=== PATIENT | male | born 1950 | race Caucasian/White ===

== ENCOUNTER 2017-04-20 11:54 | Emergency (ER) | payer BC ==
[2017-04-20] MEDS ORDERED: NS 0.9% 1000 ML* 1,000 ML IV ONE ×2 (12:14→15:26)
[2017-04-20 12:40] LABS: ABS Basophils 0 10^3/ul (0-0.2); ABS Eosinophils 0.1 10^3/ul (0-0.6); ABS Lymphocytes 1.4 10^3/ul (1.0-4.8); ABS Monocytes 0.5 10^3/ul (0-0.8); ABS Nucleated RBC 0 10^3/ul; Eosinophil % 1.8 % (0-6); Hematocrit 26 % (42-52); Hemoglobin 9.1 g/dl (14.0-18.0); Lymphocyte % 28.3 % (25-47); Mean Corpuscular HGB Conc 35 g/dl (31-36); Mean Corpuscular Hemoglobin 32 pg (27-31); Mean Corpuscular Volume 94 fL (80-94); Mean Platelet Volume 11 um3 (7.4-10.4); Nucleated Red Blood Cells % 0.1; Platelet Count 217 10^3/ul (150-450); Red Blood Count 2.81 10^6/ul (4.0-5.4); Red Cell Distribution Width 15 % (10.5-15); White Blood Count 5.1 10^3/ul (3.5-10.8)
[2017-04-20 13:00] LABS: EGFR Non-African American 80.5 (>60)
--- NOTE | 2017-04-20 13:01 | RAD ---
HISTORY: Weakness COMPARISONS: March 18, 2016 VIEWS: 4: Frontal dual-energy and lateral views of the chest. FINDINGS: CARDIOMEDIASTINAL SILHOUETTE: The cardiomediastinal silhouette is normal. NUVIA: The nuvia are normal. PLEURA: The costophrenic angles are sharp. No pleural abnormalities are noted. LUNG PARENCHYMA: There is hyper inflation. There has been interval resolution of the reticulonodular pattern of opacification of the lung bases bilaterally. ABDOMEN: The upper abdomen is clear. There is no subphrenic gas. BONES AND SOFT TISSUES: No bone or soft tissue abnormalities are noted. OTHER: None. IMPRESSION: HYPERINFLATION. THERE HAS BEEN IMPROVED AERATION OF THE LUNG BASES BILATERALLY.
[2017-04-20 15:22] LABS: Urine Appearance Clear; Urine Blood Negative (Negative); Urine Color Yellow; Urine Ketones Negative (Negative); Urine Protein Negative (Negative); Urine Specific Gravity 1.011 (1.010-1.030); Urine Urobilinogen Negative (Negative)
[2017-04-20 17:23] VITALS: BP 100/55
[2017-04-20] MEDS ORDERED: Oseltamivir SUSP 75 MG dose* 75 MG/12.5 ML ORAL.SYRIN PO SCH (21:00)
--- NOTE | 2017-04-21 21:18 | ED ---
Minh Cook Jennifer, scribed for Blas Hdez MD on 04/20/17 at 1218 . Complex/Multi-Sys Presentation - HPI Summary HPI Summary: The patient is a 66 year old male who presents with overall weakness that began three days ago. The patient describes that he had a loss of strength and congestion. He felt dizzy while standing, but he usually does not stand for long periods. The patient also complains of chills, loss of appetite, and decreased liquid intake. He experienced a complete loss of appetite about a year ago that has since resolved, but he lost a lot of his taste senses. The patient also recently began physical therapy. He was accompanied by his today. - History Of Current Complaint Chief Complaint: EDWeakness Time Seen by Provider: 04/20/17 12:02 Hx Obtained From: Patient Onset/Duration: Sudden Onset, Still Present Timing: Constant Severity Currently: Mild Severity Initially: Mild Associated Signs And Symptoms: Positive: Dizziness, Weakness - Allergies/Home Medications Allergies/Adverse Reactions: Allergies Allergy/AdvReac Type Severity Reaction Status Date / Time No Known Allergies Allergy Verified 03/24/16 12:28 Home Medications: Home Medications Alectinib 600 mg PO BID 04/20/17 [History Confirmed 04/20/17] Ibuprofen TAB* [Advil TAB*] 400 mg PO Q8H PRN 04/20/17 [History Confirmed ] PMH/Surg Hx/FS Hx/Imm Hx Endocrine/Hematology History: Denies: Hx Diabetes Cardiovascular History: Denies: Hx Hypertension Infectious Disease History: No Infectious Disease History: Denies: Hx Clostridium Difficile, Hx Hepatitis, Hx Human Immunodeficiency Virus (HIV), Hx of Known/Suspected MRSA, Hx Shingles, Hx Tuberculosis, Traveled Outside the [place] in Last 30 Days - Family History Known Family History: Negative: Hypertension, Diabetes - Social History Alcohol Use: Occasionally Substance Use Type: Reports: None Hx Tobacco Use: No Smoking Status (MU): Never Smoked Tobacco Review of Systems Positive: Chills, Other - Loss of strength, loss of appetite and fluid intake Positive: Other - congestion Neurological: Other - Dizziness while standing Positive: Weakness All Other Systems Reviewed And Are Negative: Yes Physical Exam - Summary Physical Exam Summary: Appearance: The patient is well-nourished in no acute distress and in no acute pain. Skin: The skin is warm and dry. His skin is pale and not tenting. HEENT: ~The head is normocephalic and atraumatic. The pupils are equal and reactive. The conjunctivae are pink in color. ~Nares are patent and without drainage. ~Mouth reveals dry mucous membranes and the throat is without erythema and exudate. ~The external ears are intact. The ear canals are patent and without drainage. The tympanic membranes are intact. Neck: the neck is supple with full range of motion and non-tender. There are no carotid bruits. ~There is no neck vein distension. Respiratory: Chest is non-tender. ~Lungs are clear to auscultation and breath sounds are symmetrical and equal. Cardiovascular: Heart is regular rate and rhythm. ~There is no murmur or rub auscultated. ~~There is no peripheral edema and pulses are symmetrical and equal. Abdomen: The abdomen is soft and non-tender. ~There are normal bowel sounds heard in all four quadrants and there is no organomegaly palpated. Musculoskeletal: There is no back tenderness noted. ~Extremities are non-tender with full range of motion. ~There is good capillary refill. ~There is no peripheral edema or calf tenderness elicited. Neurological: Patient is alert and oriented to person, place and time. ~The patient has symmetrical motor strength in all four extremities. ~Cranial nerves are grossly intact. Deep tendon reflexes are symmetrical and equal in all four extremities. Psychiatric: The patient has an appropriate affect and does not exhibit any anxiety or depression. Triage Information Reviewed: Yes Vital Signs On Initial Exam: Initial Vitals Temp Pulse Resp BP Pulse Ox 97.4 F 58 16 91/52 98 04/20/17 11:57 04/20/17 11:57 04/20/17 11:57 04/20/17 11:57 04/20/17 11:57 Vital Signs Reviewed: Yes Diagnostics - Vital Signs Vital Signs Temp Pulse Resp BP Pulse Ox 04/20/17 11:57 97.4 F 58 16 91/52 98 - Laboratory Lab Results: Lab Results 04/20/17 04/20/17 04/20/17 Range/Units 12:25 12:25 12:25 WBC 5.1 (3.5-10.8) 10^3/ul RBC 2.81 L (4.0-5.4) 10^6/ul Hgb 9.1 L (14.0-18.0) g/dl Hct 26 L (42-52) % MCV 94 (80-94) fL MCH 32 H (27-31) pg MCHC 35 (31-36) g/dl RDW 15 (10.5-15) % Plt Count 217 (150-450) 10^3/ul MPV 11 H (7.4-10.4) um3 Neut % (Auto) 59.2 (38-83) % Lymph % (Auto) 28.3 (25-47) % [place] % (Auto) 9.9 H (1-9) % Eos % (Auto) 1.8 (0-6) % Baso % (Auto) 0.8 (0-2) % Absolute Neuts (auto) 3.0 (1.5-7.7) 10^3/ul Absolute Lymphs (auto) 1.4 (1.0-4.8) 10^3/ul Absolute Monos (auto) 0.5 (0-0.8) 10^3/ul Absolute Eos (auto) 0.1 (0-0.6) 10^3/ul Absolute Basos (auto) 0 (0-0.2) 10^3/ul Absolute Nucleated RBC 0 10^3/ul Nucleated RBC % 0.1 Sodium 137 (133-145) mmol/L Potassium 3.9 (3.5-5.0) mmol/L Chloride 106 (101-111) mmol/L Carbon Dioxide 26 (22-32) mmol/L Anion Gap 5 (2-11) mmol/L BUN 20 (6-24) mg/dL Creatinine 0.94 (0.67-1.17) mg/dL Est GFR ( Amer) 103.6 (>60) Est GFR (Non-Af Amer) 80.5 (>60) BUN/Creatinine Ratio 21.3 H (8-20) Glucose 82 (70-100) mg/dL Lactic Acid 0.4 L (0.5-2.0) mmol/L Calcium 8.7 (8.6-10.3) mg/dL Magnesium 2.1 (1.9-2.7) mg/dL Total Bilirubin 0.50 (0.2-1.0) mg/dL AST 26 (13-39) U/L ALT 14 (7-52) U/L Alkaline Phosphatase 86 (34-104) U/L Troponin I 0.01 (<0.04) ng/mL C-Reactive Protein 15.84 H (< 5.00) mg/L Total Protein 6.2 L (6.4-8.9) g/dL Albumin 3.9 (3.2-5.2) g/dL Globulin 2.3 (2-4) g/dL Albumin/Globulin Ratio 1.7 (1-3) Urine Color Urine Appearance Urine pH (5-9) Ur Specific Erin (1.010-1.030) Urine Protein (Negative) Urine Ketones (Negative) Urine Blood (Negative) Urine Nitrate (Negative) Urine Bilirubin (Negative) Urine Urobilinogen (Negative) Ur Leukocyte Esterase (Negative) Urine Glucose (Negative) Influenza A (Rapid) (Negative) Influenza B (Rapid) (Negative) 04/20/17 04/20/17 Range/Units 12:41 15:15 WBC (3.5-10.8) 10^3/ul RBC (4.0-5.4) 10^6/ul Hgb (14.0-18.0) g/dl Hct (42-52) % MCV (80-94) fL MCH (27-31) pg MCHC (31-36) g/dl RDW (10.5-15) % Plt Count (150-450) 10^3/ul MPV (7.4-10.4) um3 Neut % (Auto) (38-83) % Lymph % (Auto) (25-47) % [place] % (Auto) (1-9) % Eos % (Auto) (0-6) % Baso % (Auto) (0-2) % Absolute Neuts (auto) (1.5-7.7) 10^3/ul Absolute Lymphs (auto) (1.0-4.8) 10^3/ul Absolute Monos (auto) (0-0.8) 10^3/ul Absolute Eos (auto) (0-0.6) 10^3/ul Absolute Basos (auto) (0-0.2) 10^3/ul Absolute Nucleated RBC 10^3/ul Nucleated RBC % Sodium (133-145) mmol/L Potassium (3.5-5.0) mmol/L Chloride (101-111) mmol/L Carbon Dioxide (22-32) mmol/L Anion Gap (2-11) mmol/L BUN (6-24) mg/dL Creatinine (0.67-1.17) mg/dL Est GFR ( Amer) (>60) Est GFR (Non-Af Amer) (>60) BUN/Creatinine Ratio (8-20) Glucose (70-100) mg/dL Lactic Acid (0.5-2.0) mmol/L Calcium (8.6-10.3) mg/dL Magnesium (1.9-2.7) mg/dL Total Bilirubin (0.2-1.0) mg/dL AST (13-39) U/L ALT (7-52) U/L Alkaline Phosphatase (34-104) U/L Troponin I (<0.04) ng/mL C-Reactive Protein (< 5.00) mg/L Total Protein (6.4-8.9) g/dL Albumin (3.2-5.2) g/dL Globulin (2-4) g/dL Albumin/Globulin Ratio (1-3) Urine Color Yellow Urine Appearance Clear Urine pH 5.0 (5-9) Ur Specific Erin 1.011 (1.010-1.030) Urine Protein Negative (Negative) Urine Ketones Negative (Negative) Urine Blood Negative (Negative) Urine Nitrate Negative (Negative) Urine Bilirubin Negative (Negative) Urine Urobilinogen Negative (Negative) Ur Leukocyte Esterase Negative (Negative) Urine Glucose Negative (Negative) Influenza A (Rapid) Positive H (Negative) Influenza B (Rapid) Negative (Negative) Result Diagrams: 04/20/17 12:25 04/20/17 12:25 Lab Statement: Any lab studies that have been ordered have been reviewed, and results considered in the medical decision making process. - Radiology CXR Xray Interpretation: Positive (See Comments) - HYPERINFLATION. THERE HAS BEEN IMPROVED AERATION OF THE LUNG BASES BILATERALLY. Dr. Hdez has reviewed this report. Radiology Interpretation Completed By: Radiologist - EKG 12:22 Cardiac Rate: Bradycardia EKG Rhythm: Sinus Bradycardia - 52 BPM EKG Interpretation: Nonspecific intraventricular conduction delay Complex Multi-Symp Course/Dx Course Of Treatment: Mr. Petersen presented with vague symptoms and was found to have influenza. He remained stable. - Diagnoses Provider Diagnoses: Influenza A Discharge - Discharge Plan Condition: Stable Disposition: HOME Prescriptions: Oseltamivir CAP* [Tamiflu CAP*] 75 mg PO BID #10 cap Patient Education Materials: Oseltamivir (By mouth), Influenza (DC) Referrals: Ranjan Umana MD [Primary Care Provider] - Roberto Navarro MD [Medical Doctor] - 1 Day Additional Instructions: Call Dr. Navarro tomorrow and let him know how you are feeling. Return to the emergency department for any new or worsening symptoms. The documentation as recorded by the Minh lugo Jennifer accurately reflects the service I personally performed and the decisions made by me, Blas Hdez MD.
== END 2017-04-20 16:45 | disposition home or self-care (01) ==
LOC: ED 11:54
DX: J09.X2 Influenza due to identified novel influenza A virus with other respiratory manifestations (principal); R42 Dizziness and giddiness; R53.1 Weakness; R09.81 Nasal congestion
CPT/HCPCS: 36415; 71046; 80053; 81003; 83605; 83735; 84484; 85025; 86140; 87502; 93005; 96360; 99284

== ENCOUNTER 2018-04-17 10:26 | Day surgery (SDC) | payer MEDICARE, BC ==
--- NOTE | 2018-04-14 07:22 | HP ---
CC: Dr. Ranjan Umana.* HISTORY AND PHYSICAL: DATE OF PLANNED ADMISSION AND SURGERY: 04/17/18 HISTORY OF PRESENT ILLNESS: Mr. Petersen is a 67-year-old white male with metastatic adenocarcinoma of the lung, and bladder lesion for transurethral resection. Mr. Petersen's history goes back to March 2016 when he was diagnosed with adenocarcinoma of the lung. At that time he was worked up and was noted to have metastatic disease to the brain, liver, pancreas, and bone. The patient was treated with total brain irradiation and then chemotherapy. He responded well and followup CT imaging showed significant reduction in the metastatic burden. He is followed at the [facility]. He has been maintained on Alecensa 150 mg daily. The patient had a follow up visit to the [facility] 2 months ago. There, he had a CT of the chest and abdomen, which showed normal multiple small pulmonary lesions, measuring about 3 to 4 mm, consistent with metastatic disease , sclerotic lesions in the thoracic spine and small volume mets into the liver. The kidneys looked normal without any masses or hydronephrosis. No CT of the pelvis was obtained. The patient was felt to be stable and no additional treatment was advised. Two weeks ago, he started having recurrent episodes of gross painless hematuria. No associated flank or abdominal pain and no voiding symptoms. He was referred to my office by Dr. Umana, his PCP for work-up of the hematuria . In my office, I performed a cystoscopy which showed a 1.5 to 2 cm elevated ulcerated lesion in the left lateral bladder wall. It had the gross appearance of a neoplastic lesion, probably metastatic rather than a primary bladder tumor. The rest of the bladder wall looked normal. No other lesions were seen. A full bladder ultrasound to check if the lesion is intramural in the bladder wall or extrinsic, invading into the bladder from the pelvis was done in the office. The lesion looked intramural, but the bladder could not be filled up adequately as the patient could not hold enough urine in his bladder. Repeat renal ultrasound in the office was normal showing no hydronephrosis or renal masses.. Because of the above finding, the patient is admitted for transurethral resection of the bladder lesion, both for diagnostic and therapeutic purposes. PAST MEDICAL HISTORY: As outlined above. The patient denies any cardiac disease. He has had difficulty ambulating since his brain irradiation and uses 2 walking sticks for his balance. He also has been anemic because of his condition. ALLERGIES: He denies any allergies to medications. SOCIAL HISTORY: He is a nonsmoker. PHYSICAL EXAMINATION GENERAL: Pale and rather weak looking white male who looks older than his age. VITAL SIGNS: Blood pressure 100/70, pulse of 90. LUNGS: Occasional rhonchi, but no wheezing. HEART: Regular and rhythmic, no murmurs. ABDOMEN: Soft. No masses, no tenderness, and no CVA tenderness. EXTERNAL GENITALIA: Normal. EXTREMITIES: Show no edema. RECTAL: Shows a non-enlarged and nonsuspicious prostate. IMPRESSION: Metastatic adenocarcinoma of the lung with a new finding of gross hematuria secondary to a 1.5 to 2 cm lesion in the left lateral bladder wall that has the gross appearance of metastatic implant. PLAN/RECOMMENDATIONS: For cystoscopy and transurethral resection of the bladder lesion for both diagnostic and therapeutic purposes. I discussed the above plans in detail with the patient and his and all their questions were answered. [id number]/CPS #: [id number] MTDD
[~2018-04-17 10:26] MED LIST: Acetaminophen TAB* 325 MG PO ONE; Buffered Lidocaine 1% SYRIN* 1 ML/SYRINGE INTRADERM ONE; Famotidine IV* 10 MG/ML 2 ML (20 mg) IV ONE; Lactated Ringers 1000 ML Bag* 1,000 ML IV SCH
[2018-04-17] MEDS ORDERED: Acetaminophen TAB* 325 MG ONE (11:05)
[2018-04-17] MEDS ORDERED: cefTRIAXone(*) 2 GM ADDV.VIAL IVPB ONE (11:05)
[2018-04-17] MEDS ORDERED: Famotidine IV* 10 MG/ML 2 ML (20 mg) ONE (11:05)
[2018-04-17] MEDS ORDERED: DiMENhydriNATE IV* 50 MG/ML VIAL IV PUSH PRN (12:39)
[2018-04-17] MEDS ORDERED: Levalbuterol 0.63MG/3ML NEB* UNIT OF USE INH PRN (12:39)
[2018-04-17] MEDS ORDERED: fentaNYL* 50 MCG/ML 2 ML VIAL (100 MCG VIAL) IV PRN (12:39)
[2018-04-17] MEDS ORDERED: Acetaminophen TAB* 325 MG PO PRN (12:39)
[2018-04-17] MEDS ORDERED: Ondansetron INJ* 2 MG/ML VIAL IV PRN (12:39)
[2018-04-17] MEDS ORDERED: Naloxone* 0.4 MG/ML 1 ML VIAL IV PRN (12:39)
[2018-04-17] MEDS ORDERED: diPHENhydraMINE IV* 50 MG/ML 1 ml VIAL (BENADRYL) IV PRN (12:39)
[2018-04-17] MEDS ORDERED: PROCHLORPERAZINE INJ 5 MG/ML 2 ML VIAL IV PRN (12:39)
[2018-04-17] MEDS ORDERED: fentaNYL* 50 MCG/ML 2 ML VIAL (100 MCG VIAL) ONE (12:50)
[2018-04-17] MEDS ORDERED: Midazolam* 1 MG/ML 2 ML VIAL (2 MG) ONE (12:50)
[2018-04-17] MEDS ORDERED: Lidocaine 2% PF * 5 ML VIAL ONE (13:37)
[2018-04-17] MEDS ORDERED: Propofol* 10 MG/ML 20 ML BTL ONE (13:38)
[2018-04-17] MEDS ORDERED: Succinylcholine* 20 MG/ML 10 ML VIAL ONE (13:38)
[2018-04-17] MEDS ORDERED: Cisatracurium* 2 MG/ML MDV 5 ML ONE (13:38)
[2018-04-17] MEDS ORDERED: EPHEDrine (Pressors)* 50 MG/ML VIAL ONE (13:50)
[2018-04-17] MEDS ORDERED: Neostigmine Methylsulfate* 1 MG/ML 10 ML VIAL (1 mg/ml) ONE (14:18)
[2018-04-17] MEDS ORDERED: Glycopyrrolate IV* 0.2 MG/ML 1 ML VIAL ONE (14:18)
[2018-04-17] MEDS ORDERED: DiMENhydriNATE IV* 50 MG/ML VIAL ONE (15:23)
[2018-04-17 16:58] VITALS: BP 106/60
--- NOTE | 2018-04-17 22:50 | OP ---
CC: Dr. Ranjan Umana * DATE OF OPERATION: 04/17/18 - [facility] DATE OF : 52 SURGEON: Dr. Langston. ANESTHESIOLOGIST: Dr. Sunny Michele. ANESTHESIA: General. PRE-OP DIAGNOSES: 1. Metastatic adenocarcinoma of the lung. 2. Bladder neoplasm. POST-OP DIAGNOSES: 1. Metastatic adenocarcinoma of the lung. 2. Bladder neoplasm. 3. Partial urethral stricture. OPERATIVE PROCEDURES: 1. Urethral dilation. 2. Cystoscopy. 3. Transurethral resection of bladder lesion (left anterolateral bladder wall, 4 cm). INDICATIONS: Mr. Petersen is a 67-year-old white male who has adenocarcinoma of the lung with metastasis into his lungs, spine, brain, and liver. He is on chemotherapy, followed by the oncology service at the [facility]. He was referred by Dr. Umana, his primary care physician, because of a 2-weeks' history of recurrent gross painless hematuria. A CT of the abdomen done in January 2018 showed normal kidneys without any hydronephrosis. Cystoscopy in the office showed a solid lesion in the left lateral bladder wall. Patient is admitted for resection of the above lesion for both diagnostic and therapeutic purposes. PATHOLOGY AT CYSTOSCOPY: There was partial strictures of the distal urethra and of the bulbar urethra. Those were easily bypassed with the cystoscope. The prostatic urethra was only mildly obstructing. Examination of the bladder showed a 3 to 4 cm solid lesion arising from the left anterolateral bladder wall. The lesion was nonpapillary and did not look like the typical transitional cell carcinoma and could well be a metastatic implant. No other bladder lesions were seen. No areas to suggest carcinoma in situ. No calculi or diverticula were noted. The ureteral orifices looked normal. The lesion was solid, deeply invasive, and minimally vascular. DESCRIPTION OF PROCEDURE: After successful general endotracheal anesthesia, patient was placed in the lithotomy position and was prepped and draped for a cystoscopy. Cystoscopy was performed. The findings in the urethra and in the bladder were noted. The distal urethra was then dilated with Menard dilators to allow the introduction of the resectoscope. The resectoscope was introduced inside the bladder. The bladder was again carefully inspected and the above findings were noted. The inflow and outflow were adjusted to avoid overdistention of the bladder. The lesion was then resected deep into muscle. There was, however, concern that if the full lesion is resected, bladder perforation would result. The tumor was resected as deep as possible. The site of the resection was then thoroughly fulgurated with coagulation current, achieving very good hemostasis. The bladder was then irrigated and all the resected tissue was evacuated and sent for pathology. Final inspection showed very good hemostasis and no evidence of any bladder perforation. The resectoscope was removed and a size 18-Persian Castelan catheter was passed inside the bladder and the balloon inflated with 10 cc of water. Patient tolerated the procedure well and left the operating room in good condition. The plan is to remove the Castelan catheter before the patient's discharge. [id number] #: [id number] MTDD
== END 2018-04-17 17:00 | disposition home or self-care (01) ==
LOC: OR 10:26
PROVIDERS: ATTEND Urology
DX: C79.11 Secondary malignant neoplasm of bladder (principal); R31.0 Gross hematuria; C34.90 Malignant neoplasm of unspecified part of unspecified bronchus or lung; C78.7 Secondary malignant neoplasm of liver and intrahepatic bile duct; C78.89 Secondary malignant neoplasm of other digestive organs; C79.31 Secondary malignant neoplasm of brain; C79.51 Secondary malignant neoplasm of bone; N35.919 Unspecified urethral stricture, male, unspecified site
CPT/HCPCS: 81445; 88305; 88341; 88342; 88360; A9270-GY; J0330; J0696; J1240; J2250; J2704; J2710; J3010

== ENCOUNTER 2018-04-18 03:31 | Emergency (ER) | payer MEDICARE, BC ==
--- OUTSIDE RECORDS SUMMARY | 2018-04-18 03:41 | XMS REPORT | Continuity of Care Document ---
:1950 External Reference #:[id number] Author Name Cristina Morocho Care Team Providers Name Role Phone HCP given Primary Care Physician Unavailable Payers Type Date Identification Numbers Payment Provider Subscriber Effective: Policy Number: [id number] National Govt James Petersen 2017 Services PayID: [id number] [address] [place] [address] Policy Number: [id number] Triston Petersen Group Number: [id number] [address] Group Name: [place] [address] PayID: [id number] Advance Directives Description No Information Available Problems Date Description Provider Status Onset: 04/13/2018 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 Hand Dominance Right-handed Tobacco Use Start: Unknown Denies Cigarette Use ETOH Use Drinks Alcoholic Beverages Occasionally Recreational Drug Use Denies Drug Use Tobacco Use Start: Unknown Non Smoker Smoking Status Reviewed: 04/13/18 Non Smoker Sun Exposure minimum amount of sun exposure Sun Exposure Uses sunscreen Seat Belt/Car Seat always uses seat belt Guns in Home Yes, Locked Up Smoke Alarms Yes smoke alarm Currently Active Patient is currently sexually active Contraceptive Methods Current methods include vasectomy Age 1st [place] 23 Years Old Sexual Hx Patient has had 1 sexual partner. Allergies, Adverse Reactions, Alerts Description No Known Drug Allergies Medications Medication Date Status Form Strength Qnty SIG Indications Ordering Provider Tylenol 01/22/ Active Tablets 325mg give 1-2 Unknown 2018 tablets by mouth [id number] as needed for pain maximum of 6 pills a day otc Alecensa 01/05/ Active Capsules 150mg 240cap 4 tablets Unknown 2018 s by mouth twice daily Aleve 11/07/ Active Tablets 220mg 2 by mouth R07.89 Lyndsay, 2017 up to every Ranjan, 8 hours for M.D. chest wall pain Alectinib 05/19/ Hx 100mg 4 by mouth Unknown 2016 - twice daily 2017 Memantine HCL 04/06/ Hx Tablets 10mg Take 1 Unknown 2017 - Tablet By 04/19/ Mouth Twice 2018 Daily. Zolpidem 04/02/ Hx Tablets 5mg Take 1/2 Unknown Tartrate 2017 - Tab By 04/19/ Mouth AT 2018 Bedtime as Needed For Insomnia Benzonatate 04/12/ Hx Capsules 100mg 30caps 1-2 by 465.9 Lyndsay 2012 - mouth three Ranjan, 04/22/ times a day M.D. 2012 as needed for cough Erythromycin 08/19/ Hx Tablets 250mg 56tabs 1 by mouth 039.0 Lyndsay, 2010 - four times Ranjan, 09/02/ a day for M.D. 2010 2wks Scopolamine 06/11/ Hx Patch 1.5mg 12unit apply 8 -12 Nawaf AEdilberto Transdermal 2010 - s hours Klepack, Patch 07/11/ before M.D. 2010 getting on boat Fluocinonide 10/03/ Hx Cream 0.05% 60gm apply 692.6 Nawaf AEdilberto 2008 - sparingly Brunilda, 11/24/ to affected M.D. 2009 area tid prn itch do not use on face Flexeril 11/14/ Hx Tablets 10mg 30tabs 1/2 po tid 724.2 brunilda 2003 - 2009 DO not operate heavy equipment while on meds Immunizations CPT Code Status Date Vaccine Lot # [id number] Given 12/21/2017 Influenza Virus Vaccine, Quadrivalent, Split, [id number] Preservative Free 22106 Given 11/07/2017 Prevnar 13 [id number] 80067 Given 02/03/2010 Adacel or Boostrix, TDaP [id number] 11737 Given 02/03/2010 Flu, Split Virus 3Yrs [id number] 86316 Given 01/16/2005 Flu, Split Virus 3Yrs 36716 Given 01/16/2005 Flu, Split Virus 3Yrs [id number] Refused 02/17/2016 Influenza Virus Vaccine, Quadrivalent, Split, Im Use Vital Signs Date Vital Result Comment 04/13/2018 4:42pm BP Systolic 96 mmHg BP Diastolic 60 mmHg 04/11/2018 4:07pm BP Systolic 100 mmHg BP Diastolic 60 mmHg Weight 150.00 lb with shoes 01/23/2018 11:58am BP Systolic 90 mmHg BP Diastolic 60 mmHg Weight 150.50 lb 01/09/2018 4:53pm BP Systolic 92 mmHg BP Diastolic 62 mmHg 12/21/2017 4:40pm BP Systolic 94 mmHg BP Diastolic 60 mmHg Weight 151.00 lb 11/07/2017 1:26pm BP Systolic 88 mmHg BP Diastolic 58 mmHg Weight 148.00 lb 04/20/2017 10:42am BP Systolic 72 mmHg R arm sitting, RN BP Diastolic 48 mmHg R arm sitting, RN BP Systolic Recheck 71 mmHg R arm,electronic cuff-80/46 L arm electronic cuff BP Diastolic Recheck 41 mmHg R arm,electronic cuff-80/46 L arm electronic cuff Heart Rate 64 /min Respiratory Rate 14 /min not laboured O2 % BldC Oximetry 90 % Body Temperature 97.5 F Height 71 inches 5'11" Weight 152.00 lb BMI (Body Mass Index) 21.2 kg/m2 02/26/2016 1:11pm BP Systolic 136 mmHg BP Diastolic 78 mmHg Heart Rate 70 /min Respiratory Rate 16 /min Weight 173.00 lb 02/17/2016 2:40pm BP Systolic 120 mmHg BP Diastolic 80 mmHg Heart Rate 80 /min Respiratory Rate 16 /min Body Temperature 97.9 F Height 70.25 inches 5'10.25" Weight 176.00 lb BMI (Body Mass Index) 25.1 kg/m2 04/12/2012 10:22am BP Systolic 118 mmHg BP Diastolic 74 mmHg Body Temperature 99.1 F Height 70 inches 5'10" Weight 173.00 lb BMI (Body Mass Index) 24.8 kg/m2 Last Menstrual Period 0 09/07/2010 4:13pm BP Systolic 118 mmHg BP Diastolic 76 mmHg Weight 165.00 lb Last Menstrual Period 0 08/19/2010 4:37pm BP Systolic 138 mmHg BP Diastolic 86 mmHg Body Temperature 97.9 F Height 70 inches 5'10" Weight 166.00 lb BMI (Body Mass Index) 23.8 kg/m2 Last Menstrual Period 0 05/18/2010 10:10am BP Systolic 160 mmHg BP Diastolic 80 mmHg BP Systolic Recheck 156 mmHg BP Diastolic Recheck 80 mmHg Height 70.26 inches 5'10.26" from last time Weight 169.00 lb Waist Circumference 35 can still pinch an inch BMI (Body Mass Index) 24.1 kg/m2 02/17/2010 3:25pm BP Systolic 134 mmHg BP Diastolic 92 mmHg BP Systolic Recheck 146 mmHg r adult BP Diastolic Recheck 76 mmHg r adult Heart Rate 70 /min Respiratory Rate 16 /min Weight 189.50 lb 02/03/2010 3:24pm BP Systolic 126 mmHg BP Diastolic 94 mmHg BP Systolic Recheck 140 mmHg BP Diastolic Recheck 96 mmHg Heart Rate 70 /min Respiratory Rate 16 /min Height 70.25 inches 5'10.25" Weight 192.00 lb BMI (Body Mass Index) 27.4 kg/m2 Last Menstrual Period 0 10/03/2008 4:53pm BP Systolic 132 mmHg BP Diastolic 90 mmHg Height 70.25 inches 5'10.25" Weight 189.00 lb BMI (Body Mass Index) 26.9 kg/m2 12/15/2007 1:16pm BP Systolic 136 mmHg BP Diastolic 84 mmHg Height 70.3 inches 5'10.30" Weight 194.00 lb BMI (Body Mass Index) 27.6 kg/m2 Last Menstrual Period 0 12/15/2007 1:11pm Height 71 inches 5'11" 11/15/2003 11:23am BP Systolic 130 mmHg BP Diastolic 90 mmHg Height 71 inches 5'11" Weight 196.00 lb BMI (Body Mass Index) 27.3 kg/m2 Results Test Date Facility Test Result H/L Range Note CBC Auto Diff 04/12/2018 [facility] White Blood 6.9 10^3/uL N 3.5- 10.8 [phone] Count Red Blood Count 2.76 10^6/uL Low 4.00-5.40 Hemoglobin 9.1 g/dL Low 14.0-18.0 Hematocrit 27 % Low 42-52 Mean Corpuscular Volume 96 fL High 80-94 Mean Corpuscular Hemoglobin 33 pg High 27-31 Mean Corpuscular HGB Conc 34 g/dL N 31-36 Red Cell Distribution Width 14 % N 10.5-15 Platelet Count 293 10^3/uL N 150-450 Mean Platelet Volume 10.7 fL High 7.4-10.4 Abs Neutrophils 3.6 10^3/uL N 1.5-7.7 Abs Lymphocytes 2.1 10^3/uL N 1.0-4.8 Abs Monocytes 0.6 10^3/uL N 0-0.8 Abs Eosinophils 0.4 10^3/uL N 0-0.6 Abs Basophils 0.1 10^3/uL N 0-0.2 Abs Nucleated RBC 0 10^3/uL Granulocyte % 52.3 % Lymphocyte % 30.2 % Monocyte % 9.3 % Eosinophil % 6.2 % Basophil % 2.0 % Nucleated Red Blood Cells % 0.1 Basic Metabolic Panel 04/12/2018 [facility] Sodium 138 mmol/L N 135- 145 [phone] Potassium 4.2 mmol/L N 3.5-5.0 Chloride 106 mmol/L N 101-111 Co2 Carbon Dioxide 28 mmol/L N 22-32 Anion Gap 4 mmol/L N 2-11 Glucose 105 mg/dL High 70-100 Blood Urea Nitrogen 24 mg/dL N 6-24 Creatinine 1.01 mg/dL N 0.67-1.17 BUN/Creatinine Ratio 23.8 High 8-20 Calcium 9.3 mg/dL N 8.6-10.3 Egfr Non- 73.9 >60 Egfr 89.4 >60 1 Laboratory test 04/12/2018 [facility] Partial 37.2 seconds High 26.0- 36.3 finding [phone] Thrombo Time PTT Inr/Protime 04/12/2018 [facility] Inr 0.99 N 0.77-1.02 [phone] Urine Micro 04/11/2018 In House Ua RBC TNTC 2 Inhouse Ua Specific [place] 1.030 Ua Blood large Ua PH 5.0 Culture Urine Inhouse 04/11/2018 In House Colonies no growth Basic Metabolic Panel 12/22/2017 [facility] Sodium 142 mmol/L N 135- 145 [phone] Potassium 4.5 mmol/L N 3.5-5.0 Chloride 108 mmol/L N 101-111 Co2 Carbon Dioxide 27 mmol/L N 22-32 Anion Gap 7 mmol/L N 2-11 Glucose 85 mg/dL N 70-100 Blood Urea Nitrogen 21 mg/dL N 6-24 Creatinine 1.05 mg/dL N 0.67-1.17 BUN/Creatinine Ratio 20.0 N 8-20 Calcium 8.9 mg/dL N 8.6-10.3 Egfr Non- 70.7 >60 Egfr 85.5 >60 3 Laboratory test 04/20/2017 [facility] Rapid Influenza A SEE RESULT 4 finding [phone] B Antigen BELOW CBC Auto Diff 04/20/2017 [facility] White Blood Count 5.1 10^3/uL N 3.5-10. [phone] Red Blood Count 2.81 10^6/uL Low 4.0-5.4 Hemoglobin 9.1 g/dL Low 14.0-18.0 Hematocrit 26 % Low 42-52 Mean Corpuscular Volume 94 fL N 80-94 Mean Corpuscular Hemoglobin 32 pg High 27-31 Mean Corpuscular HGB Conc 35 g/dL N 31-36 Red Cell Distribution Width 15 % N 10.5-15 Platelet Count 217 10^3/uL N 150-450 Mean Platelet Volume 11 um3 High 7.4-10.4 Abs Neutrophils 3.0 10^3/uL N 1.5-7.7 Abs Lymphocytes 1.4 10^3/uL N 1.0-4.8 Abs Monocytes 0.5 10^3/uL N 0-0.8 Abs Eosinophils 0.1 10^3/uL N 0-0.6 Abs Basophils 0 10^3/uL N 0-0.2 Abs Nucleated RBC 0 10^3/uL Granulocyte % 59.2 % N 38-83 Lymphocyte % 28.3 % N 25-47 Monocyte % 9.9 % High 1-9 Eosinophil % 1.8 % N 0-6 Basophil % 0.8 % N 0-2 Nucleated Red Blood Cells % 0.1 Comp Metabolic Panel 04/20/2017 [facility] Sodium 137 mmol/L N 133- 145 [phone] Potassium 3.9 mmol/L N 3.5-5.0 Chloride 106 mmol/L N 101-111 Co2 Carbon Dioxide 26 mmol/L N 22-32 Anion Gap 5 mmol/L N 2-11 Glucose 82 mg/dL N 70-100 Blood Urea Nitrogen 20 mg/dL N 6-24 Creatinine 0.94 mg/dL N 0.67-1.17 BUN/Creatinine Ratio 21.3 High 8-20 Calcium 8.7 mg/dL N 8.6-10.3 Total Protein 6.2 g/dL Low 6.4-8.9 Albumin 3.9 g/dL N 3.2-5.2 Globulin 2.3 g/dL N 2-4 Albumin/Globulin Ratio 1.7 N 1-3 Total Bilirubin 0.50 mg/dL N 0.2-1.0 Alkaline Phosphatase 86 U/L N 34-104 Alt 14 U/L N 7-52 Ast 26 U/L N 13-39 Egfr Non- 80.5 >60 Egfr 103.6 >60 5 Laboratory test finding 04/20/2017 [facility] Magnesium 2.1 mg/dL N 1.9-2.7 [phone] C Reactive Protein 15.84 mg/L High < 5.00 6 Troponin-I (TnI) 0.01 ng/mL <0.04 Lactic Acid 0.4 mmol/L Low 0.5-2.0 7 Rapid Influenza 04/20/2017 [facility] Influenza A POSITIVE Abnormal Negative 8 A & B Molecular [phone] Molecular Influenza B Molecular NEGATIVE Negative Urinalysis Profile 04/20/2017 [facility] Urine Color Yellow [phone] Urine Appearance Clear Urine Specific [place] 1.011 N 1.010-1.030 Urine pH 5.0 N 5-9 Urine Urobilinogen Negative Negative Urine Ketones Negative Negative Urine Protein Negative Negative Urine Leukocytes Negative Negative Urine Blood Negative Negative Urine Nitrite Negative Negative Urine Bilirubin Negative Negative Urine Glucose Negative Negative Arthritis Panel 03/02/2016 [facility] Erythrocyte Sed Rate 75 mm/Hr High 0-20 [phone] Uric Acid 5.1 mg/dL N 4.4-7.6 Rheumatoid Factor <15 IU/mL N <15 9 Anti-Nuclear Antibody 0.4 U N 10 Cyclic Citrullinated Peptide <15.6 U N 11 Interpretation See Comment N 12 CBC Auto Diff 02/26/2016 [facility] White Blood Count 5.4 10^3/uL N 3.5-10.8 [phone] Red Blood Count 4.40 10^6/uL N 4.0-5.4 Hemoglobin 13.9 g/dL Low 14.0-18.0 Hematocrit 41 % Low 42-52 Mean Corpuscular Volume 93 fL N 80-94 Mean Corpuscular Hemoglobin 32 pg High 27-31 Mean Corpuscular HGB Conc 34 g/dL N 31-36 Red Cell Distribution Width 12 % N 10.5-15 Platelet Count 320 10^3/uL N 150-450 Mean Platelet Volume 10 um3 N 7.4-10.4 Abs Neutrophils 3.1 10^3/uL N 1.5-7.7 Abs Lymphocytes 1.4 10^3/uL N 1.0-4.8 Abs Monocytes 0.7 10^3/uL N 0-0.8 Abs Eosinophils 0.2 10^3/uL N 0-0.6 Abs Basophils 0 10^3/uL N 0-0.2 Abs Nucleated RBC 0 10^3/uL N Granulocyte % 56.8 % N 38-83 Lymphocyte % 25.1 % N 25-47 Monocyte % 12.9 % High 1-9 Eosinophil % 4.3 % N 0-6 Basophil % 0.9 % N 0-2 Nucleated Red Blood Cells % 0.1 N Liver Function Panel 02/26/2016 [facility] Total Protein 6.9 g/dL N 6.4-8.9 [phone] Albumin 4.2 g/dL N 3.2-5.2 Globulin 2.7 g/dL N 2-4 Albumin/Globulin Ratio 1.6 N 1-3 Total Bilirubin 0.50 mg/dL N 0.2-1.0 Direct Bilirubin 0.10 mg/dL N 0.03-0.18 Indirect Bilirubin 0.4 mg/dL N 0.3-1.0 Alkaline Phosphatase 58 U/L N 34-104 Alt 13 U/L N 7-52 Ast 17 U/L N 13-39 Laboratory test finding 02/26/2016 [facility] Monospot Negative N Negative 13 [phone] Erythrocyte Sed Rate 80 mm/Hr High 0-20 14 Creatine Kinase(CK) 96 U/L N 10-223 Hepatitis Acute 02/26/2016 [facility] Hepatitis B Nonreactive N Nonreactive Panel [phone] Surface Antigen Hepatitis B Core IgM Nonreactive N Nonreactive Hepatitis A AB IgM Nonreactive N Nonreactive Hepatitis C Antibody Nonreactive N Nonreactive Lyme Western Blot 02/26/2016 [facility] Lyme Disease IgG Negative N Negative [phone] Ab WB Lyme Disease IgG Bands Present p41, kDa N Lyme Disease IgM Ab WB Negative N Negative Lyme Disease IgM Bands Present No bands detecte <SEE NOTE> kDa N 15 Lyme Disease Interpretation See Comment N 16 Liver Function Panel 02/17/2016 [facility] Total Protein 7.3 g/dL N 6.4-8.9 [phone] Albumin 4.5 g/dL N 3.2-5.2 Globulin 2.8 g/dL N 2-4 Albumin/Globulin Ratio 1.6 N 1-3 Total Bilirubin 0.70 mg/dL N 0.2-1.0 Direct Bilirubin 0.10 mg/dL N 0.03-0.18 Indirect Bilirubin 0.6 mg/dL N 0.3-1.0 Alkaline Phosphatase 65 U/L N 34-104 Alt 21 U/L N 7-52 Ast 20 U/L N 13-39 CBC Auto Diff 02/17/2016 [facility] White Blood Count 7.3 10^3/uL N 3.5-10.8 [phone] Red Blood Count 4.76 10^6/uL N 4.0-5.4 Hemoglobin 15.2 g/dL N 14.0-18.0 Hematocrit 45 % N 42-52 Mean Corpuscular Volume 94 fL N 80-94 Mean Corpuscular Hemoglobin 32 pg High 27-31 Mean Corpuscular HGB Conc 34 g/dL N 31-36 Red Cell Distribution Width 13 % N 10.5-15 Platelet Count 350 10^3/uL N 150-450 Mean Platelet Volume 10 um3 N 7.4-10.4 Abs Neutrophils 4.3 10^3/uL N 1.5-7.7 Abs Lymphocytes 1.7 10^3/uL N 1.0-4.8 Abs Monocytes 1.0 10^3/uL High 0-0.8 Abs Eosinophils 0.2 10^3/uL N 0-0.6 Abs Basophils 0 10^3/uL N 0-0.2 Abs Nucleated RBC 0 10^3/uL N Granulocyte % 59.2 % N 38-83 Lymphocyte % 23.7 % Low 25-47 Monocyte % 13.8 % High 1-9 Eosinophil % 2.8 % N 0-6 Basophil % 0.5 % N 0-2 Nucleated Red Blood Cells % 0 N Basic Metabolic Panel 02/17/2016 [facility] Sodium 136 mmol/L N 133- 145 [phone] Potassium 4.4 mmol/L N 3.5-5.0 Chloride 101 mmol/L N 101-111 Co2 Carbon Dioxide 28 mmol/L N 22-32 Anion Gap 7 mmol/L N 2-11 Glucose 86 mg/dL N 70-100 Blood Urea Nitrogen 17 mg/dL N 6-24 Creatinine 1.03 mg/dL N 0.67-1.17 BUN/Creatinine Ratio 16.5 N 8-20 Calcium 10.4 mg/dL High 8.6-10.3 Egfr Non- 72.7 N >60 Egfr 93.5 N >60 17 Laboratory test 02/17/2016 [facility] Erythrocyte Sed 56 mm/Hr High 0 -20 finding [phone] Rate Urine Micro 02/17/2016 In House Ua WBC - 18 Inhouse Ua RBC - Ua Casts - Ua Epi - Ua Other - Ua Glucose - Ua Bilirubin - Ua Ketones - Ua Specific [place] 1.015 Ua Blood H Tr Ua PH 6.0 Ua Protein - Ua Urobilinogen - Ua Nitrite - Ua Leukocytes - Laboratory test finding 08/24/2010 [facility] Ast (Sgot) 25 U/L 12- 42 [phone] Comp Metabolic Panel 08/24/2010 [facility] Sodium 139 mmol/L 135- 145 [phone] Potassium 4.7 mmol/L 3.5-5.0 Chloride 104 mmol/L 101-111 Co2 (Carbon Dioxide) 29.0 mmol/L 22-32 Anion Gap 6.0 mmol/L 2-11 19 Glucose 86 mg/dL 70-100 BUN 16 mg/dL 6-24 Creatinine 0.90 mg/dL 0.50-1.40 One Over Creatinine 1.10 BUN/Creatinine Ratio 17.8 8-20 Calcium 9.8 mg/dL 8.1-9.9 Total Protein 6.8 GM/DL 6.2-8.1 Albumin 4.4 GM/DL 3.6-5.4 Globulin 2.4 GM/DL 2-4 Albumin/Globulin Ratio 1.8 1-3 Bilirubin Total 1.1 mg/dL 0.4-1.5 20 Alkaline Phosphatase 63 U/L 39-117 Alt (SGPT) 21 U/L 17-63 eGFR Non- 86.4 > 60 eGFR 111.1 > 60 21 CBC With Electronic 08/24/2010 [facility] White Blood 5.6 CUMM 4.8- 10.8 Diff [phone] Count Red Cell Count 4.28 CUMM Low 4.6-6.2 Hemoglobin 13.6 g/dL Low 14.0-18.0 Hematocrit 41 % Low 42-52 Mean Corpuscular Volume 96 um3 High 80-94 Mean Corpuscular Hemoglob 32 pg High 27-31 Mean Corpuscular HGB Cone 33 g/dL 32-36 Redcell Distribution WDTH 14 % 10.5-15 Platelet Count 267 CUMM 150-450 Mean Platelet Volume 9.5 um3 7.4-10.4 Gran % 63.9 % 38-83 Lymph % 20.3 % Low 25-47 Mononuclear % 13.9 % High 1-9 Eosinophil % 1.3 % 0-6 Basophil % 0.6 % 0-2 Abs Lymphs 1.1 1.0-4.8 Abs Mononuclear 0.8 0-0.8 Absolute Neutrophil Count 3.6 1.5-7.7 Abs Eosinophils 0.1 0-0.6 Abs Basophils 0 0-0.2 Laboratory test 08/24/2010 [facility] TSH 3.56 MIU/ML 0.34-5.60 finding [phone] Lipid Profile 08/24/2010 [facility] Triglyceride 37 mg/dL Low 40-200 (Trig/Chol/HDL) [phone] Cholesterol 276 mg/dL High Less Than 200 22 High Density Lipoprotein 75 mg/dL High 40-60 23 Cholesterol/HDL Ratio 3.68 AVERAGE 1-4.97 Low Density Lipoprotein 194 mg/dL High Less Than 100 24 Lipid Profile 05/14/2010 [facility] Triglyceride 52 mg/dL 40-200 (Trig/Chol/HDL) [phone] Cholesterol 227 mg/dL High Less Than 200 25 High Density Lipoprotein 65 mg/dL High 40-60 26 Cholesterol/HDL Ratio 3.49 AVERAGE 1-4.97 Low Density Lipoprotein 152 mg/dL High Less Than 100 27 Laboratory test 05/14/2010 [facility] Ast (Sgot) 23 U/L 12-42 finding [phone] Surgical Pathology 04/02/2010 [facility] Surgical Pathology - 28 [phone] ----- <SEE NOTE> Urine Micro Inhouse 02/03/2010 In House Ua WBC occ Ua RBC - Ua Casts - Ua Epi - Ua Other - Ua Glucose - Ua Bilirubin - Ua Ketones - Ua Specific [place] 1.030 Ua Blood tr Ua PH 6.0 Ua Protein - Ua Urobilinogen - Ua Nitrite - Ua Leukocytes tr Lipid Profile 02/03/2010 [facility] Triglyceride 89 mg/dL 40-200 (Trig/Chol/HDL) [phone] Cholesterol 312 mg/dL High Less Than 200 29 High Density Lipoprotein 53 mg/dL 40-60 30 Cholesterol/HDL Ratio 5.89 AVERAGE High 1-4.97 Low Density Lipoprotein 241 mg/dL High Less Than 100 31 Comp Metabolic Panel 02/03/2010 [facility] Sodium 136 mmol/L 135- 145 [phone] Potassium 4.8 mmol/L 3.5-5.0 Chloride 101 mmol/L 101-111 Co2 (Carbon Dioxide) 28.0 mmol/L 22-32 Anion Gap 7.0 mmol/L 2-11 32 Glucose 80 mg/dL 70-100 33 BUN 16 mg/dL 6-24 Creatinine 1.00 mg/dL 0.50-1.40 One Over Creatinine 1.00 BUN/Creatinine Ratio 16.0 8-20 Calcium 9.8 mg/dL 8.1-9.9 Total Protein 6.9 GM/DL 6.2-8.1 Albumin 4.9 GM/DL 3.6-5.4 Globulin 2.0 GM/DL 2-4 Albumin/Globulin Ratio 2.5 1-3 Bilirubin Total 1.0 mg/dL 0.4-1.5 34 Alkaline Phosphatase 70 U/L 39-117 Alt (SGPT) 38 U/L 17-63 Ast (Sgot) 25 U/L 12-42 eGFR Non- 81.6 > 60 eGFR 98.7 > 60 35 CBC With Electronic 02/03/2010 [facility] White Blood 7.6 CUMM 4.8- 10.8 Diff [phone] Count Red Cell Count 4.52 CUMM Low 4.6-6.2 Hemoglobin 14.7 g/dL 14.0-18.0 Hematocrit 43 % 42-52 Mean Corpuscular Volume 94 um3 80-94 Mean Corpuscular Hemoglob 33 pg High 27-31 Mean Corpuscular HGB Cone 35 g/dL 32-36 Redcell Distribution WDTH 13 % 10.5-15 Platelet Count 283 CUMM 150-450 Mean Platelet Volume 8.1 um3 7.4-10.4 Gran % 64.1 % 38-83 Lymph % 19.4 % Low 25-47 Mononuclear % 14.8 % High 1-9 Eosinophil % 1.3 % 0-6 Basophil % 0.4 % 0-2 Abs Lymphs 1.5 1.0-4.8 Abs Mononuclear 1.1 High 0-0.8 Absolute Neutrophil Count 4.8 1.5-7.7 Abs Eosinophils 0.1 0-0.6 Abs Basophils 0 0-0.2 36 Laboratory test 02/03/2010 [facility] PSA Screening 2.54 NG/ML 0-4 37 finding [phone] Laboratory test 12/15/2007 [facility] Surgical verruca vulgari 38 finding [phone] Pathology 1 Because ethnic data is not always readily available, this report includes an eGFR for both -Americans and non- Americans. The National Kidney Disease Education Program (NKDEP) does not endorse the use of the MDRD equation for patients that are not between the ages of 18 and 70, are , have extremes of body size, muscle mass, or nutritional status, or are non- or non-. According to the National Kidney Foundation, irrespective of diagnosis, the stage of the disease is based on the level of kidney function: Stage Description GFR(mL/min/1.73 m(2)) 1 Kidney damage with normal or decreased GFR 90 2 Kidney damage with mild decrease in GFR 60-89 3 Moderate decrease in GFR 30-59 4 Severe decrease in GFR 15-29 5 Kidney failure <15 (or dialysis) 2 HS aware 3 Because ethnic data is not always readily available, this report includes an eGFR for both -Americans and non- Americans. The National Kidney Disease Education Program (NKDEP) does not endorse the use of the MDRD equation for patients that are not between the ages of 18 and 70, are , have extremes of body size, muscle mass, or nutritional status, or are non- or non-. According to the National Kidney Foundation, irrespective of diagnosis, the stage of the disease is based on the level of kidney function: Stage Description GFR(mL/min/1.73 m(2)) 1 Kidney damage with normal or decreased GFR 90 2 Kidney damage with mild decrease in GFR 60-89 3 Moderate decrease in GFR 30-59 4 Severe decrease in GFR 15-29 5 Kidney failure <15 (or dialysis) 4 SEE RESULT BELOW Name: JAMES PETERSEN : [address]: Blas Hdez MD Acct: [id number] Unit: [id number] AGE: 66 Location: ED Re04/20/17 SEX: M Status: REG ER SPEC: [id number] VARSHA: 04/20/17 [facility] DR: Blas Hdez MD REQ: [id number] RECD: 04/20/17 STATUS: COMP [facility] DR: Ranjan Umana MD _ SOURCE: [facility]: ORDERED: Flu A B Request Procedure Result Reported Site Rapid Influenza A B Request Final 04/20/17- 1246 ML Specimen received for Influenza A/B Molecular testing * ML - MAIN LAB ([facility]) . END OF REPORT * ML=Testing performed at Main Lab DEPARTMENT OF PATHOLOGY, [address] [place] [address] Trent Pham M.D. Director [facility] # [id number] 5 Because ethnic data is not always readily available, this report includes an eGFR for both -Americans and non- Americans. The National Kidney Disease Education Program (NKDEP) does not endorse the use of the MDRD equation for patients that are not between the ages of 18 and 70, are , have extremes of body size, muscle mass, or nutritional status, or are non- or non-. According to the National Kidney Foundation, irrespective of diagnosis, the stage of the disease is based on the level of kidney function: Stage Description GFR(mL/min/1.73 m(2)) 1 Kidney damage with normal or decreased GFR 90 2 Kidney damage with mild decrease in GFR 60-89 3 Moderate decrease in GFR 30-59 4 Severe decrease in GFR 15-29 5 Kidney failure <15 (or dialysis) 6 Acute inflammation: >10.00 7 [facility] Severe Sepsis and Septic Shock Management Bundle Measure requires all lactic acids initially measuring >2.0 mmol/L be repeated. 8 Acetylene Cutter: [id number] 9 Test Performed by: [place] [address] Clinical Field Specialist: Nawaf Palencia II, M.D., Ph.D. 10 REFERENCE VALUE <=1.0 (Negative) 11 REFERENCE VALUE <20.0 (Negative) 12 Tests for antibodies to dsDNA and JONNY antigens are not performed automatically unless the AYANNA result is > or= 3.0 U. Studies performed at [facility] indicate that positive AYANNA results <3.0 U are rarely accompanied by positive second order tests. Test Performed by: [place] [address] Clinical Field Specialist: Nawaf Palencia II, M.D., Ph.D. 13 Would you like an EBV if Monospot is Negative?: N 14 Would you like an EBV if Monospot is Negative?: N 15 No bands detected 16 Specific serologic response to B. burgdorferi infection is not detected, but cannot rule out early infection during which low or undetectable antibody levels to B. burgdorferi may be present. If clinically indicated, a new serum specimen should be submitted in 7-14 days. ADDITIONAL INFORMATION CDC criteria require >=5 bands for IgG or >=2 bands for IgM for the Immunoblot to be considered positive. Bands (e.g.,p41) may be detected in patients without Lyme disease, and patterns not meeting the CDC criteria should be interpreted with caution. Immunoblot should be ordered only on specimens that are positive or equivocal by a FDA-licensed Lyme disease antibody screening test (e.g., EIA). Test Performed by: [place] [address] Clinical Field Specialist: Nawaf Palencia II, M.D., Ph.D. 17 Because ethnic data is not always readily available, this report includes an eGFR for both -Americans and non- Americans. The National Kidney Disease Education Program (NKDEP) does not endorse the use of the MDRD equation for patients that are not between the ages of 18 and 70, are , have extremes of body size, muscle mass, or nutritional status, or are non- or non-. According to the National Kidney Foundation, irrespective of diagnosis, the stage of the disease is based on the level of kidney function: Stage Description GFR(mL/min/1.73 m(2)) 1 Kidney damage with normal or decreased GFR 90 2 Kidney damage with mild decrease in GFR 60-89 3 Moderate decrease in GFR 30-59 4 Severe decrease in GFR 15-29 5 Kidney failure <15 (or dialysis) 18 void, clear, gold 19 Anion gap measurement may be of limited value in the presence of any alkalosis, especially in a combined acid base disorder. . 20 A metabolite of Naproxen, O-desmethylnaproxen, has been shown to interfere with the Jendrassik-Aulander method for measuring total bilirubin. Samples from patients who have taken Naproxen have shown spurious elevation in total bilirubin levels. 21 Because ethnic data is not always readily available, this report includes an eGFR for both -Americans and non- Americans. The National Kidney Disease Education Program (NKDEP) does not endorse the use of the MDRD equation for patients that are not between the ages of 18 and 70, are , have extremes of body size, muscle mass, or nutritional status, or are non- or non-. According to the National Kidney Foundation, irrespective of diagnosis, the stage of the disease is based on the level of kidney function: Stage Description GFR(mL/min/1.73 m(2)) 1 Kidney damage with normal or decreased GFR 90 2 Kidney damage with mild decrease in GFR 60-89 3 Moderate decrease in GFR 30-59 4 Severe decrease in GFR 15-29 5 Kidney failure <15 (or dialysis) 22 CHOLESTEROL INTERPRETATION: Desirable: Less than 200 MG/DL Borderline-High Risk: 200-239 MG/DL High-Risk: 240 MG/DL and over 23 HDL INTERPRETATION: Undesirable: High Risk: Less than 40 MG/DL Desirable: Low Risk: Greater than 60 MG/DL 24 LDL INTERPRETATION: Low Risk Optimal Level: LDL Less than 100 MG/DL Near or Above Optimal: LDL 100-129 MG/DL Borderline High Risk: LDL 130-159 MG/DL High Risk: LDL 160-189 MG/DL Very High Risk: LDL Greater than 189 MG/DL 25 CHOLESTEROL INTERPRETATION: Desirable: Less than 200 MG/DL Borderline-High Risk: 200-239 MG/DL High-Risk: 240 MG/DL and over 26 HDL INTERPRETATION: Undesirable: High Risk: Less than 40 MG/DL Desirable: Low Risk: Greater than 60 MG/DL 27 LDL INTERPRETATION: Low Risk Optimal Level: LDL Less than 100 MG/DL Near or Above Optimal: LDL 100-129 MG/DL Borderline High Risk: LDL 130-159 MG/DL High Risk: LDL 160-189 MG/DL Very High Risk: LDL Greater than 189 MG/DL 28 ---- RUN DATE: 04/06/[address] [facility] NMI LIVE PAGE 1 RUN TIME: 1143 Specimen Inquiry RUN USER: INTERFACE -- Name: JAMES PETERSEN Status: REG REF Re04/02/10 Age/Sex: 59/M Unit#: [id number] Location: [address] [place] [address]. : 52 -- Specimen: [id number] SOUT Spec Date: 04/02/[address]: Jose betancur MD Spec Type: SURGICAL P Received: 04/03/10-1203 Copies to: Nawaf gutiérrez MD SPECIMEN 1) TRANSVERSE COLON POLYP COLD SNARE 2) COLON POLYP AT 30 CM. COLD SNARE HISTORY POST-OP DIAGNOSIS: Colonoscopy to terminal ileum, prep good; 2 small precious yps removed cold snare, sigmoid diverticulosis CLINICAL INFORMATION: Screening colonoscopy GROSS DESCRIPTION 1) The specimen is received in formalin labelled James Nicola, Transverse Colon Polyp, and consists of a caldwell polypoid, soft tissue fragment measuring 0.5 x 0.4 x 0.4 cm. Submitted entirely, one cassette. 2) The specimen is received in formalin labelled James Petersen, Colon Polyp at 30 cm., and consists of a caldwell, soft tissue fragment measuring 0.3 x 0.2 x 0.2 cm. Submitted entirely, one cassette. DIAGNOSIS 1) Transverse colon, biopsy: A. Tubular adenoma. B. No high grade dysplasia or malignancy. 2) Colon at 30 cm., biopsy: A. Tubular adenoma. B. No high grade dysplasia or malignancy. Signed Electronically by: FRANCESCO VELÁZQUEZ 04/06/10 1143 -- -- DEPARTMENT OF PATHOLOGY, [address] [place] [address] [facility] Permit #[id number] Trent Pham M.D. Director Francesco Velázquez M.D. Health Technician Dir monae -- 29 CHOLESTEROL INTERPRETATION: Desirable: Less than 200 MG/DL Borderline-High Risk: 200-239 MG/DL High-Risk: 240 MG/DL and over 30 HDL INTERPRETATION: Undesirable: High Risk: Less than 40 MG/DL Desirable: Low Risk: Greater than 60 MG/DL 31 LDL INTERPRETATION: Low Risk Optimal Level: LDL Less than 100 MG/DL Near or Above Optimal: LDL 100-129 MG/DL Borderline High Risk: LDL 130-159 MG/DL High Risk: LDL 160-189 MG/DL Very High Risk: LDL Greater than 189 MG/DL 32 Anion gap measurement may be of limited value in the presence of any alkalosis, especially in a combined acid base disorder. . 33 Note change in reference range as of 11/09/07. The change was based on recommendations from the [place] [employer]. 34 A metabolite of Naproxen, O-desmethylnaproxen, has been shown to interfere with the Jendrassik-Eli method for measuring total bilirubin. Samples from patients who have taken Naproxen have shown spurious elevation in total bilirubin levels. 35 Because ethnic data is not always readily available, this report includes an eGFR for both -Americans and non- Americans. The National Kidney Disease Education Program (NKDEP) does not endorse the use of the MDRD equation for patients that are not between the ages of 18 and 70, are , have extremes of body size, muscle mass, or nutritional status, or are non- or non-. According to the National Kidney Foundation, irrespective of diagnosis, the stage of the disease is based on the level of kidney function: Stage Description GFR(mL/min/1.73 m(2)) 1 Kidney damage with normal or decreased GFR 90 2 Kidney damage with mild decrease in GFR 60-89 3 Moderate decrease in GFR 30-59 4 Severe decrease in GFR 15-29 5 Kidney failure <15 (or dialysis) 36 Lymphopenia % 37 * SERUM LEVELS OF PSA MEASURED USING THE ELINA [employer] ACCESS HYBRITECH IMMUNOASSAY SHOULD NOT BE INTERPRETED ABSOLUTE EVIDENCE OF THE PRESENCE OR ABSENCE OF DISEASE. THE PSA VALUE SHOULD BE USED IN CONJUNCTION WITH OTHER PERTINENT CLINICAL DIAGNOSTIC PROCEDURES. 38 ---- RUN DATE: 12/19/[address] [facility] NMI LIVE PAGE 1 RUN TIME: 1404 Specimen Inquiry RUN USER: INTERFACE -- Name: JAMES PETERSEN Status: REG REF Re12/15/07 Age/Sex: 57/M Unit#: [id number] Location: [facility] : 52 -- Specimen: [id number] [facility] Spec Date: 12/15/[address]: Nawaf rich MD Spec Type: SURGICAL P Received: 12/18/07-0912 Copies to: SPECIMEN SHAVE BIOPSY OF 2 MM. FILIFORM LESION LEFT NARE HISTORY PRE-OP DIAGNOSIS: Proud flesh versus verrucous lesion. GROSS DESCRIPTION The specimen is received in formalin labelled James Petersen, Skin Left Nares, and consists of a triangular fragment of caldwell-white tissue with a dark, pigmented lesion measuring 0.1 x 0.1 x 0.1 cm. The fragment of tissue measures 0.4 x 0.3 x 0.3 cm. The specimen is submitted entirely as it is in one cassette. DIAGNOSIS Skin, left nare, shave biopsy: Verruca vulgaris. Dictated by Francesco Velázquez M.D. Reviewed by Trent Pham M.D. and I concur with the above rendered diagnosis. Signed Electronically by: TRENT PHAM MD 12/19/07 1404 -- -- DEPARTMENT OF PATHOLOGY, [address] [place] [address] [facility] Permit #[id number] Trent Pham M.D. 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 Office Visit 01/23/2018 11:45a Main Office Ranjan Umana, R07.89 Other chest pain M.D. C34.90 Malignant neoplasm of unsp part of unsp bronchus or lung R93.7 Abnormal findings on diagnostic imaging of prt ms sys Office Visit 01/09/2018 4:45p Main Office Ranjan Umana, S06.0x1D Concussion w Loc M.D. of 30 minutes or less, subs R07.89 Other chest pain Z91.81 History of falling C34.92 Malignant neoplasm of unsp part of left bronchus or lung Office Visit 12/21/2017 4:00p Main Office Ranjan Umana, Z23 Encounter for M.D. immunization R07.89 Other chest pain C34.90 Malignant neoplasm of unsp part of unsp bronchus or lung Z23 Encounter for immunization C79.31 Secondary malignant neoplasm of brain Z92.21 Personal history of antineoplastic chemotherapy Office Visit 11/07/2017 1:15p Main Office Ranjan Umana, R07.89 Other chest pain M.D. C34.90 Malignant neoplasm of unsp part of unsp bronchus or lung C79.31 Secondary malignant neoplasm of brain Z23 Encounter for immunization Z41.8 Encntr for oth proc for purpose oth [facility] Office Visit 04/20/2017 10:30a Main Office Ranjan Umana M.D. R53.1 Weakness I95.9 Hypotension, unspecified C34.90 Malignant neoplasm of unsp part of unsp bronchus or lung J06.9 Acute upper respiratory infection, unspecified Office Visit 05/14/2016 4:45p Main Office Nawaf Yoon, R60.0 Localized edema M.D. T45.1x5A Adverse effect of antineoplastic and immunosup drugs, init C34.90 Malignant neoplasm of unsp part of unsp bronchus or lung C79.31 Secondary malignant neoplasm of brain R53.0 Neoplastic (malignant) related fatigue Office Visit 02/26/2016 Main Office Nawaf Contreras R53.81 Other malaise 1:05p [place] Yoon Office Visit 02/17/2016 Main Office Nawaf Contreras R53.81 Other malaise 2:10p [place] Yoon Office Visit 04/12/2012 Main Office Lyndsay 465.9 URI Upper Respiratory 10:00a [place] Woodruff Infections Acute Unspec Sites Office Visit 09/07/2010 Main Office Nawaf Contreras 272.0 Hypercholesterolemia Pure 3:45p [place] Yoon 216.5 Benign Neoplasm Skin Trunk Except Scrotum 333.1 Tremor Essential & Other Forms Office Visit 08/19/2010 4:30p Main Office Ranjan Umana, 039.0 Actinomycetic [place] Infection Cutaneous 782.1 Rash & Other Nonspec Skin Eruption Office Visit 05/18/2010 10:00a Main Office Nawaf Contreras 796.2 Blood Pressure [place] Yoon Reading Elevated W/O Hypertension 272.0 Hypercholesterolemia Pure 278.02 Overweight Office Visit 02/17/2010 3:15p Main Office Nawaf Contreras 796.2 Blood Pressure [place] Yoon Reading Elevated W/O Hypertension 272.4 Hyperlipidemia Other Unspec Office Visit 02/03/2010 3:15p Main Office Nawaf Contreras 599.70 Hematuria, [place] Yoon Unspecified 796.2 Blood Pressure [place] Elevated W/O Hypertension V76.44 Screening For Malig Gavin Prostate V76.51 Special Screening For Malignant Neoplasms Colon V77.91 Screening For Lipoid Disorders 278.02 Overweight V04.81 Need For Prophylactic Vaccination & Inoculation/Influenza V06.1 Eziknmtolx-Cszadxl-Duvjzkzu Combined (DTaP) V07.2 Prophylactic Immunotherapy Office Visit 10/03/2008 4:45p Main Office Nawaf Contreras 692.6 Dermatitis Contact [place] Yoon Due To Plants (Except Food) Office Visit 11/15/2003 11:00a Main Office brunilda 724.2 Lumbago Plan of Treatment 04/13/2018 - Jaye Colón, PAZ01.818 Encounter for other preprocedural examinationComments:Patient is at increased risk for surgery due to co-morbid conditions, but is cleared for urgent planned procedure. Patient has no prior anesthetic related complications.Studies ordered in Office:EKG - Sinus rhythm with mild intraventricular conduction delay. Vent rate 65, Gilbert 153, QRSd 113, QT /QTc 439/450, P-R-T axes 34/53/71. No prior EKG available for comparison.Lab - UA/urine culture (sample obtained in office today). Results pending, will be copied to surgeon. Blood work drawn 04/12/18 per surgeon. Case and EKG reviewed with Dr. Goetz.D41.4 Neoplasm of uncertain behavior of njvvwiwJ92.0 Gross hematuria
--- OUTSIDE RECORDS SUMMARY | 2018-04-18 03:41 | XMS REPORT | Continuity of Care Document ---
:1950 External Reference #:[id number] Author Name Ranjan Umana M.D. Address [address] [facility] [address] [place] [address] Care Team Providers Name Role Phone HCP given Primary Care Physician Unavailable Payers Type Date Identification Numbers Payment Provider Subscriber Effective: Policy Number: [id number] [facility]en 2017 Services PayID: [id number] [address] [place] [address] Policy Number: [id number] Triston Petersen Group Number: [id number] [address] Group Name: [place] [address] PayID: [id number] Advance Directives Description No Information Available Problems [...] Daughter 11/15/87 First Brother Well First Brother Rashaad First Brother 1946 First Sister Well First Sister Carolin First [...] Methods Current methods include vasectomy Age 1st [place] 23 Years Old Sexual Hx Patient has had 1 sexual partner. Allergies, Adverse Reactions, Alerts Description No Known Drug Allergies Medications Medication Date Status Form Strength Qnty SIG Indications Ordering Provider Tylenol 01/22/ Active Tablets 325mg give 1-2 Unknown 2017 tablets by mouth i1hceou as needed for pain maximum of 6 pills a day otc Alecensa 01/05/ Active Capsules 150mg 240cap 4 tablets Unknown 2017 s by mouth twice daily Aleve 11/07/ [...] Hx Capsules 100mg 30caps 1-2 by 465.9 Lyndsay, 2012 - mouth three Ranjan, 04/22/ times [...] apply 692.6 Nawaf AEdilberto 2008 - sparingly Klebrock, 11/24/ to affected M.D. 2010 area tid prn itch do not use on face Flexeril 11/14/ Hx Tablets 10mg 30tabs 1/2 po tid 724.2 brunilda 2003 - 2009 DO not operate heavy equipment while on meds Immunizations CPT Code Status Date Vaccine Lot # [id number] Given 12/21/2017 Influenza Virus Vaccine, Quadrivalent, Split, [id number] Preservative Free [id number] Given 11/07/2017 Prevnar 13 [id number] Given 02/03/2010 Adacel or Boostrix, TDaP [id number] 35731 Given 02/03/2010 Flu, Split Virus 3Yrs [id number] 82298 Given 01/16/2005 Flu, Split Virus 3Yrs 36232 Given 01/16/2005 Flu, Split Virus 3Yrs [id number] Refused 02/17/2016 Influenza Virus Vaccine, Quadrivalent, Split, [...] H/L Range Note CBC Auto Diff 04/12/2018 [facility] White Blood 6.9 10^3/uL N 3.5- 10.8 [phone] Count Red Blood Count 2.76 10^6/uL Low [...] Cells % 0.1 Basic Metabolic Panel 04/12/2018 [facility] Sodium 138 mmol/L N 135- 145 [phone] Potassium 4.2 mmol/L N 3.5-5.0 Chloride 106 mmol/L N 101-111 Co2 Carbon Dioxide 28 mmol/L N 22-32 Anion Gap 4 mmol/L N 2-11 Glucose 105 mg/dL High 70-100 Blood Urea Nitrogen 24 mg/dL N 6-24 Creatinine 1.01 mg/dL N 0.67-1.17 BUN/Creatinine Ratio 23.8 High 8-20 Calcium 9.3 mg/dL N 8.6-10.3 Egfr Non- 73.9 >60 Egfr 89.4 >60 1 Laboratory test 04/12/2018 [facility] Partial 37.2 seconds High 26.0- 36.3 finding [phone] Thrombo Time PTT Inr/Protime 04/12/2018 [facility] Inr 0.99 N 0.77-1.02 [phone] Urine Micro 04/11/2018 In House Ua RBC TNTC 2 Inhouse Ua Specific [place] 1.030 Ua Blood large Ua PH 5.0 Culture Urine Inhouse 04/11/2018 In House Colonies no growth Basic Metabolic Panel 12/22/2017 [facility] Sodium 142 mmol/L N 135- 145 [phone] Potassium 4.5 mmol/L N 3.5-5.0 Chloride 108 mmol/L N 101-111 Co2 Carbon Dioxide 27 mmol/L N 22-32 Anion Gap 7 mmol/L N 2-11 Glucose 85 mg/dL N 70-100 Blood Urea Nitrogen 21 mg/dL N 6-24 Creatinine 1.05 mg/dL N 0.67-1.17 BUN/Creatinine Ratio 20.0 N 8-20 Calcium 8.9 mg/dL N 8.6-10.3 Egfr Non- 70.7 >60 Egfr 85.5 >60 3 Laboratory test 04/20/2017 [facility] Rapid Influenza A SEE RESULT 4 finding [phone] B Antigen BELOW CBC Auto Diff 04/20/2017 [facility] White Blood Count 5.1 10^3/uL N 3.5-10. [phone] Red Blood Count 2.81 10^6/uL Low [...] Cells % 0.1 Comp Metabolic Panel 04/20/2017 [facility] Sodium 137 mmol/L N 133- 145 [phone] Potassium 3.9 mmol/L N 3.5-5.0 Chloride 106 [...] 103.6 >60 5 Laboratory test finding 04/20/2017 [facility] Magnesium 2.1 mg/dL N 1.9-2.7 [phone] C Reactive Protein 15.84 mg/L High < 5.00 6 Troponin-I (TnI) 0.01 ng/mL <0.04 Lactic Acid 0.4 mmol/L Low 0.5-2.0 7 Rapid Influenza 04/20/2017 [facility] Influenza A POSITIVE Abnormal Negative 8 A & B Molecular [phone] Molecular Influenza B Molecular NEGATIVE Negative Urinalysis Profile 04/20/2017 [facility] Urine Color Yellow [phone] Urine Appearance Clear Urine Specific [place] 1.011 N 1.010-1.030 Urine pH 5.0 N 5-9 Urine Urobilinogen Negative Negative Urine Ketones Negative Negative Urine Protein Negative Negative Urine Leukocytes Negative Negative Urine Blood Negative Negative Urine Nitrite Negative Negative Urine Bilirubin Negative Negative Urine Glucose Negative Negative Arthritis Panel 03/02/2016 [facility] Erythrocyte Sed Rate 75 mm/Hr High 0-20 [phone] Uric Acid 5.1 mg/dL N 4.4-7.6 Rheumatoid Factor <15 IU/mL N <15 9 Anti-Nuclear Antibody 0.4 U N 10 Cyclic Citrullinated Peptide <15.6 U N 11 Interpretation See Comment N 12 CBC Auto Diff 02/26/2016 [facility] White Blood Count 5.4 10^3/uL N 3.5-10.8 [phone] Red Blood Count 4.40 10^6/uL N 4.0-5.4 [...] % 0.1 N Liver Function Panel 02/26/2016 [facility] Total Protein 6.9 g/dL N 6.4-8.9 [phone] Albumin 4.2 g/dL N 3.2-5.2 Globulin 2.7 g/dL N 2-4 Albumin/Globulin Ratio 1.6 N 1-3 Total Bilirubin 0.50 mg/dL N 0.2-1.0 Direct Bilirubin 0.10 mg/dL N 0.03-0.18 Indirect Bilirubin 0.4 mg/dL N 0.3-1.0 Alkaline Phosphatase 58 U/L N 34-104 Alt 13 U/L N 7-52 Ast 17 U/L N 13-39 Laboratory test finding 02/26/2016 [facility] Monospot Negative N Negative 13 [phone] Erythrocyte Sed Rate 80 mm/Hr High 0-20 14 Creatine Kinase(CK) 96 U/L N 10-223 Hepatitis Acute 02/26/2016 [facility] Hepatitis B Nonreactive N Nonreactive Panel [phone] Surface Antigen Hepatitis B Core IgM Nonreactive N Nonreactive Hepatitis A AB IgM Nonreactive N Nonreactive Hepatitis C Antibody Nonreactive N Nonreactive Lyme Western Blot 02/26/2016 [facility] Lyme Disease IgG Negative N Negative [phone] Ab WB Lyme Disease IgG Bands Present p41, kDa N Lyme Disease IgM Ab WB Negative N Negative Lyme Disease IgM Bands Present No bands detecte <SEE NOTE> kDa N 15 Lyme Disease Interpretation See Comment N 16 Liver Function Panel 02/17/2016 [facility] Total Protein 7.3 g/dL N 6.4-8.9 [phone] Albumin 4.5 g/dL N 3.2-5.2 Globulin 2.8 g/dL N 2-4 Albumin/Globulin Ratio 1.6 N 1-3 Total Bilirubin 0.70 mg/dL N 0.2-1.0 Direct Bilirubin 0.10 mg/dL N 0.03-0.18 Indirect Bilirubin 0.6 mg/dL N 0.3-1.0 Alkaline Phosphatase 65 U/L N 34-104 Alt 21 U/L N 7-52 Ast 20 U/L N 13-39 CBC Auto Diff 02/17/2016 [facility] White Blood Count 7.3 10^3/uL N 3.5-10.8 [phone] Red Blood Count 4.76 10^6/uL N 4.0-5.4 [...] % 0 N Basic Metabolic Panel 02/17/2016 [facility] Sodium 136 mmol/L N 133- 145 [phone] Potassium 4.4 mmol/L N 3.5-5.0 Chloride 101 mmol/L N 101-111 Co2 Carbon Dioxide 28 mmol/L N 22-32 Anion Gap 7 mmol/L N 2-11 Glucose 86 mg/dL N 70-100 Blood Urea Nitrogen 17 mg/dL N 6-24 Creatinine 1.03 mg/dL N 0.67-1.17 BUN/Creatinine Ratio 16.5 N 8-20 Calcium 10.4 mg/dL High 8.6-10.3 Egfr Non- 72.7 N >60 Egfr 93.5 N >60 17 Laboratory test 02/17/2016 [facility] Erythrocyte Sed 56 mm/Hr High 0 -20 finding [phone] Rate Urine Micro 02/17/2016 In House Ua WBC - 18 Inhouse Ua RBC - Ua Casts - Ua Epi - Ua Other - Ua Glucose - Ua Bilirubin - Ua Ketones - Ua Specific [place] 1.015 Ua Blood H Tr Ua PH 6.0 Ua Protein - Ua Urobilinogen - Ua Nitrite - Ua Leukocytes - Laboratory test finding 08/24/2010 [facility] Ast (Sgot) 25 U/L 12- 42 [phone] Comp Metabolic Panel 08/24/2010 [facility] Sodium 139 mmol/L 135- 145 [phone] Potassium 4.7 mmol/L 3.5-5.0 Chloride 104 mmol/L [...] > 60 21 CBC With Electronic 08/24/2010 [facility] White Blood 5.6 CUMM 4.8- 10.8 Diff [phone] Count Red Cell Count 4.28 CUMM Low [...] Abs Basophils 0 0-0.2 Laboratory test 08/24/2010 [facility] TSH 3.56 MIU/ML 0.34-5.60 finding [phone] Lipid Profile 08/24/2010 [facility] Triglyceride 37 mg/dL Low 40-200 (Trig/Chol/HDL) [phone] Cholesterol 276 mg/dL High Less Than 200 22 High Density Lipoprotein 75 mg/dL High 40-60 23 Cholesterol/HDL Ratio 3.68 AVERAGE 1-4.97 Low Density Lipoprotein 194 mg/dL High Less Than 100 24 Lipid Profile 05/14/2010 [facility] Triglyceride 52 mg/dL 40-200 (Trig/Chol/HDL) [phone] Cholesterol 227 mg/dL High Less Than 200 25 High Density Lipoprotein 65 mg/dL High 40-60 26 Cholesterol/HDL Ratio 3.49 AVERAGE 1-4.97 Low Density Lipoprotein 152 mg/dL High Less Than 100 27 Laboratory test 05/14/2010 [facility] Ast (Sgot) 23 U/L 12-42 finding [phone] Surgical Pathology 04/02/2010 [facility] Surgical Pathology - 28 [phone] ----- <SEE NOTE> Urine Micro Inhouse 02/03/2010 In House Ua WBC occ Ua RBC - Ua Casts - Ua Epi - Ua Other - Ua Glucose - Ua Bilirubin - Ua Ketones - Ua Specific [place] 1.030 Ua Blood tr Ua PH 6.0 Ua Protein - Ua Urobilinogen - Ua Nitrite - Ua Leukocytes tr Lipid Profile 02/03/2010 [facility] Triglyceride 89 mg/dL 40-200 (Trig/Chol/HDL) [phone] Cholesterol 312 mg/dL High Less Than 200 29 High Density Lipoprotein 53 mg/dL 40-60 30 Cholesterol/HDL Ratio 5.89 AVERAGE High 1-4.97 Low Density Lipoprotein 241 mg/dL High Less Than 100 31 Comp Metabolic Panel 02/03/2010 [facility] Sodium 136 mmol/L 135- 145 [phone] Potassium 4.8 mmol/L 3.5-5.0 Chloride 101 mmol/L [...] > 60 35 CBC With Electronic 02/03/2010 [facility] White Blood 7.6 CUMM 4.8- 10.8 Diff [phone] Count Red Cell Count 4.52 CUMM Low [...] Basophils 0 0-0.2 36 Laboratory test 02/03/2010 [facility] PSA Screening 2.54 NG/ML 0-4 37 finding [phone] Laboratory test 12/15/2007 [facility] Surgical verruca vulgari 38 finding [phone] Pathology 1 Because ethnic data is not [...] [address]: Blas Hdez MD Acct: [id number] Unit: [id number] AGE: 66 Location: ED Re04/20/17 SEX: M Status: REG ER SPEC: [id number] VARSHA: 04/20/17 [facility] DR: Blas Hdez MD REQ: [id number] RECD: 04/20/17 STATUS: CARLOS HINDS DR: Ranjan Umana MD _ SOURCE: [facility]: ORDERED: Flu A B Request Procedure Result Reported Site Rapid Influenza A B Request Final 04/20/17- 1246 ML Specimen received for Influenza A/B Molecular testing * ML - MAIN LAB ([facility]) . END OF REPORT * ML=Testing performed at Main Lab DEPARTMENT OF PATHOLOGY, [address] [place] [address] Trent Pham M.D. Director [facility] # [id number] 5 Because ethnic data is not always [...] (or dialysis) 6 Acute inflammation: >10.00 7 [facility] Severe Sepsis and Septic Shock Management Bundle Measure requires all lactic acids initially measuring >2.0 mmol/L be repeated. 8 Physical Damage Appraiser: [id number] 9 Test Performed by: [place] [address] Banking Consultant: Nawaf Palencia II, M.D., Ph.D. 10 REFERENCE VALUE <=1.0 (Negative) 11 REFERENCE VALUE <20.0 (Negative) 12 Tests for antibodies to dsDNA and JONNY antigens are not performed automatically unless the AYANNA result is > or= 3.0 U. Studies performed at [facility] indicate that positive AYANNA results <3.0 U are rarely accompanied by positive second order tests. Test Performed by: [place] [address] Banking Consultant: Nawaf Palencia II, M.D., Ph.D. 13 Would [...] screening test (e.g., EIA). Test Performed by: [place] [address] Banking Consultant: Nawaf Palencia II, M.D., Ph.D. 17 Because [...] 189 MG/DL 28 ---- RUN DATE: 04/06/10 [facility] NMI LIVE PAGE 1 RUN TIME: 1143 Specimen Inquiry RUN USER: INTERFACE -- Name: JAMES PETERSEN Status: REG REF Re04/02/10 Age/Sex: 59/M Unit#: [id number] Location: [address] [place] [address]. : 52 -- Specimen: [id number] SOUT Spec Date: 04/02/[address]: Jose [...] is received in formalin labelled James Petersen, Transverse Colon Polyp, and consists of a [...] 04/06/10 1143 -- -- DEPARTMENT OF PATHOLOGY, [address] [place] [address] [facility] Permit #[id number] Trent Pham M.D. Director Francesco Velázquez M.D. Nurse Staff [facility] Dir dov -- 29 CHOLESTEROL INTERPRETATION: Desirable: Less than [...] change was based on recommendations from the [place] [employer]. 34 A metabolite of Naproxen, [...] LEVELS OF PSA MEASURED USING THE [employer] ACCESS HYBRITECH IMMUNOASSAY SHOULD NOT BE INTERPRETED ABSOLUTE EVIDENCE OF THE PRESENCE OR ABSENCE OF DISEASE. THE PSA VALUE SHOULD BE USED IN CONJUNCTION WITH OTHER PERTINENT CLINICAL DIAGNOSTIC PROCEDURES. 38 ---- RUN DATE: 12/19/07 [facility] NMI LIVE PAGE 1 RUN TIME: 1404 Specimen Inquiry RUN USER: INTERFACE -- Name: JAMES PETERSEN Status: REG REF Re12/15/07 Age/Sex: 57/M Unit#: [id number] Location: [facility]. : 52 -- Specimen: [id number] [facility] Spec Date: 12/15/07 [facility] Dr: Nawaf rich MD Spec Type: SURGICAL P Received: 12/18/07 Copies to: SPECIMEN SHAVE BIOPSY OF 2 [...] 12/19/07 1404 -- -- DEPARTMENT OF PATHOLOGY, [address] [place] [address] [facility] Permit #[id number] Trent Pham M.D. 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2 Prophylactic Immunotherapy Office Visit 10/03/2008 4:45p Main Office Nawaf Contreras 692.6 Dermatitis Contact [place] Y[place] Due To Plants (Except Food) Office Visit 11/15/2003 11:00a Main Office brunilda 724.2 Lumbago Plan of Treatment No Information Available
--- OUTSIDE RECORDS SUMMARY | 2018-04-18 03:42 | XMS REPORT | Continuity of Care Document ---
:1950 External Reference #:[id number] Author Name Ranjan Umana M.D. Address [address] [facility] [address] [place] [address] Care Team Providers Name Role Phone HCP given Primary Care Physician Unavailable Payers Type Date Identification Numbers Payment Provider Subscriber Effective: Policy Number: [id number] [facility]en 2017 Services PayID: [id number] [address] [place] [address] Policy Number: [id number] Triston Petersen Group Number: [id number] [address] Group Name: [place] [address] PayID: [id number] Advance Directives Description No Information Available Problems Description No Active Problems Family History Date Family Member(s) Problem(s) Comments Father Glaucoma Onset: (age 95 Years) Father Valvular Heart Disease "slight" Father Blas Father 191 Mother Slite Hearing Loss. 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 Allergies, Adverse Reactions, Alerts Description No Known Drug Allergies Medications Medication Date Status Form Strength Qnty SIG Indications Ordering Provider Tylenol 01/22/ Active Tablets 325mg give 1-2 Unknown 2018 tablets by mouth [id number] as needed for pain maximum of 6 [...] 04/06/ Hx Tablets 10mg Take 1 Unknown 2016 - Tablet By 04/19/ Mouth Twice 2018 [...] apply 692.6 Nawaf AEdilberto 2008 - sparingly Klepack, 11/24/ to affected M.D. 2009 area tid prn itch do not use on face Flexeril 11/14/ Hx Tablets 10mg 30tabs 1/2 po tid 724.2 kayepack 2003 - 2009 DO not operate heavy equipment while on meds Immunizations CPT Code Status Date Vaccine Lot # [id number] Given 12/21/2017 Influenza Virus Vaccine, Quadrivalent, Split, [id number] Preservative Free 40975 Given 11/07/2017 Prevnar 13 [id number] 90890 Given 02/03/2010 Adacel or Boostrix, TDaP [id number] 50689 Given 02/03/2010 Flu, Split Virus 3Yrs [id number] 73003 Given 01/16/2005 Flu, Split Virus 3Yrs 32839 Given 01/16/2005 Flu, Split Virus 3Yrs [id number] Refused 02/17/2016 Influenza Virus Vaccine, Quadrivalent, Split, Im Use Vital Signs Date Vital Result Comment 04/11/2018 4:07pm BP Systolic 100 mmHg BP [...] Date Facility Test Result H/L Range Note Basic Metabolic Panel 12/22/2017 [facility] Sodium 142 mmol/L N 135- 145 [phone] Potassium 4.5 mmol/L N 3.5-5.0 Chloride 108 mmol/L N 101-111 Co2 Carbon Dioxide 27 mmol/L N 22-32 Anion Gap 7 mmol/L N 2-11 Glucose 85 mg/dL N 70-100 Blood Urea Nitrogen 21 mg/dL N 6-24 Creatinine 1.05 mg/dL N 0.67-1.17 BUN/Creatinine Ratio 20.0 N 8-20 Calcium 8.9 mg/dL N 8.6-10.3 Egfr Non- 70.7 >60 Egfr 85.5 >60 1 Urinalysis Profile 04/20/2017 [facility] Urine Color Yellow [phone] Urine Appearance Clear Urine Specific [place] 1.011 N 1.010-1.030 Urine pH 5.0 N 5-9 Urine Urobilinogen Negative Negative Urine Ketones Negative Negative Urine Protein Negative Negative Urine Leukocytes Negative Negative Urine Blood Negative Negative Urine Nitrite Negative Negative Urine Bilirubin Negative Negative Urine Glucose Negative Negative Rapid Influenza 04/20/2017 [facility] Influenza A POSITIVE Abnormal Negative 2 A & B Molecular [phone] Molecular Influenza B Molecular NEGATIVE Negative Laboratory test 04/20/2017 [facility] Rapid Influenza A SEE RESULT 3 finding [phone] B Antigen BELOW CBC Auto Diff 04/20/2017 [facility] White Blood Count 5.1 10^3/uL N 3.5-10. [phone] Red Blood Count 2.81 10^6/uL Low [...] Cells % 0.1 Comp Metabolic Panel 04/20/2017 [facility] Sodium 137 mmol/L N 133- 145 [phone] Potassium 3.9 mmol/L N 3.5-5.0 Chloride 106 [...] Egfr Non- 80.5 >60 Egfr 103.6 >60 4 Laboratory test finding 04/20/2017 [facility] Magnesium 2.1 mg/dL N 1.9-2.7 [phone] C Reactive Protein 15.84 mg/L High < 5.00 5 Troponin-I (TnI) 0.01 ng/mL <0.04 Lactic Acid 0.4 mmol/L Low 0.5-2.0 6 Arthritis Panel 03/02/2016 [facility] Erythrocyte Sed Rate 75 mm/Hr High 0-20 [phone] Uric Acid 5.1 mg/dL N 4.4-7.6 Rheumatoid Factor <15 IU/mL N <15 7 Anti-Nuclear Antibody 0.4 U N 8 Cyclic Citrullinated Peptide <15.6 U N 9 Interpretation See Comment N 10 CBC Auto Diff 02/26/2016 [facility] White Blood Count 5.4 10^3/uL N 3.5-10.8 [phone] Red Blood Count 4.40 10^6/uL N 4.0-5.4 [...] % 0.1 N Liver Function Panel 02/26/2016 [facility] Total Protein 6.9 g/dL N 6.4-8.9 [phone] Albumin 4.2 g/dL N 3.2-5.2 Globulin 2.7 g/dL N 2-4 Albumin/Globulin Ratio 1.6 N 1-3 Total Bilirubin 0.50 mg/dL N 0.2-1.0 Direct Bilirubin 0.10 mg/dL N 0.03-0.18 Indirect Bilirubin 0.4 mg/dL N 0.3-1.0 Alkaline Phosphatase 58 U/L N 34-104 Alt 13 U/L N 7-52 Ast 17 U/L N 13-39 Laboratory test finding 02/26/2016 [facility] Monospot Negative N Negative 11 [phone] Erythrocyte Sed Rate 80 mm/Hr High 0-20 12 Creatine Kinase(CK) 96 U/L N 10-223 Hepatitis Acute 02/26/2016 [facility] Hepatitis B Nonreactive N Nonreactive Panel [phone] Surface Antigen Hepatitis B Core IgM Nonreactive N Nonreactive Hepatitis A AB IgM Nonreactive N Nonreactive Hepatitis C Antibody Nonreactive N Nonreactive Lyme Western Blot 02/26/2016 [facility] Lyme Disease IgG Negative N Negative [phone] Ab WB Lyme Disease IgG Bands Present p41, kDa N Lyme Disease IgM Ab WB Negative N Negative Lyme Disease IgM Bands Present No bands detecte <SEE NOTE> kDa N 13 Lyme Disease Interpretation See Comment N 14 Liver Function Panel 02/17/2016 [facility] Total Protein 7.3 g/dL N 6.4-8.9 [phone] Albumin 4.5 g/dL N 3.2-5.2 Globulin 2.8 g/dL N 2-4 Albumin/Globulin Ratio 1.6 N 1-3 Total Bilirubin 0.70 mg/dL N 0.2-1.0 Direct Bilirubin 0.10 mg/dL N 0.03-0.18 Indirect Bilirubin 0.6 mg/dL N 0.3-1.0 Alkaline Phosphatase 65 U/L N 34-104 Alt 21 U/L N 7-52 Ast 20 U/L N 13-39 CBC Auto Diff 02/17/2016 [facility] White Blood Count 7.3 10^3/uL N 3.5-10.8 [phone] Red Blood Count 4.76 10^6/uL N 4.0-5.4 [...] % 0 N Basic Metabolic Panel 02/17/2016 [facility] Sodium 136 mmol/L N 133- 145 [phone] Potassium 4.4 mmol/L N 3.5-5.0 Chloride 101 mmol/L N 101-111 Co2 Carbon Dioxide 28 mmol/L N 22-32 Anion Gap 7 mmol/L N 2-11 Glucose 86 mg/dL N 70-100 Blood Urea Nitrogen 17 mg/dL N 6-24 Creatinine 1.03 mg/dL N 0.67-1.17 BUN/Creatinine Ratio 16.5 N 8-20 Calcium 10.4 mg/dL High 8.6-10.3 Egfr Non- 72.7 N >60 Egfr 93.5 N >60 15 Laboratory test 02/17/2016 [facility] Erythrocyte Sed 56 mm/Hr High 0 -20 finding [phone] Rate Urine Micro 02/17/2016 In House [facility]a WBC - 16 Inhouse Ua RBC - Ua Casts - Ua Epi - Ua Other - Ua Glucose - Ua Bilirubin - Ua Ketones - Ua Specific [place] 1.015 Ua Blood H Tr Ua PH 6.0 Ua Protein - Ua Urobilinogen - Ua Nitrite - Ua Leukocytes - Lipid Profile 08/24/2010 [facility] Triglyceride 37 mg/dL Low 40-200 (Trig/Chol/HDL) [phone] Cholesterol 276 mg/dL High Less Than 200 17 High Density Lipoprotein 75 mg/dL High 40-60 18 Cholesterol/HDL Ratio 3.68 AVERAGE 1-4.97 Low Density Lipoprotein 194 mg/dL High Less Than 100 19 Laboratory test 08/24/2010 [facility] TSH 3.56 MIU/ML 0.34-5.60 finding [phone] CBC With Electronic 08/24/2010 [facility] White Blood 5.6 CUMM 4.8- 10.8 Diff [phone] Count Red Cell Count 4.28 CUMM Low [...] Eosinophils 0.1 0-0.6 Abs Basophils 0 0-0.2 Comp Metabolic Panel 08/24/2010 [facility] Sodium 139 mmol/L 135- 145 [phone] Potassium 4.7 mmol/L 3.5-5.0 Chloride 104 mmol/L 101-111 Co2 (Carbon Dioxide) 29.0 mmol/L 22-32 Anion Gap 6.0 mmol/L 2-11 20 Glucose 86 mg/dL 70-100 BUN 16 mg/dL 6-24 Creatinine 0.90 mg/dL 0.50-1.40 One Over Creatinine 1.10 BUN/Creatinine Ratio 17.8 8-20 Calcium 9.8 mg/dL 8.1-9.9 Total Protein 6.8 GM/DL 6.2-8.1 Albumin 4.4 GM/DL 3.6-5.4 Globulin 2.4 GM/DL 2-4 Albumin/Globulin Ratio 1.8 1-3 Bilirubin Total 1.1 mg/dL 0.4-1.5 21 Alkaline Phosphatase 63 U/L 39-117 Alt (SGPT) 21 U/L 17-63 eGFR Non- 86.4 > 60 eGFR 111.1 > 60 22 Laboratory test finding 08/24/2010 [facility] Ast (Sgot) 25 U/L 12- 42 [phone] Laboratory test finding 05/14/2010 [facility] Ast (Sgot) 23 U/L 12- 42 [phone] Lipid Profile 05/14/2010 [facility] Triglyceride 52 mg/dL 40-200 (Trig/Chol/HDL) [phone] Cholesterol 227 mg/dL High Less Than 200 23 High Density Lipoprotein 65 mg/dL High 40-60 24 Cholesterol/HDL Ratio 3.49 AVERAGE 1-4.97 Low Density Lipoprotein 152 mg/dL High Less Than 100 25 Surgical 04/02/2010 [facility] Surgical <SEE 26 Pathology [phone] Pathology NOTE> Comp Metabolic 02/03/2010 [facility] Sodium 136 mmol/L 135-1 Panel [phone] Potassium 4.8 mmol/L 3.5-5.0 Chloride 101 mmol/L 101-111 Co2 (Carbon Dioxide) 28.0 mmol/L 22-32 Anion Gap 7.0 mmol/L 2-11 27 Glucose 80 mg/dL 70-100 28 BUN 16 mg/dL 6-24 Creatinine 1.00 mg/dL 0.50-1.40 One Over Creatinine 1.00 BUN/Creatinine Ratio 16.0 8-20 Calcium 9.8 mg/dL 8.1-9.9 Total Protein 6.9 GM/DL 6.2-8.1 Albumin 4.9 GM/DL 3.6-5.4 Globulin 2.0 GM/DL 2-4 Albumin/Globulin Ratio 2.5 1-3 Bilirubin Total 1.0 mg/dL 0.4-1.5 29 Alkaline Phosphatase 70 U/L 39-117 Alt (SGPT) 38 U/L 17-63 Ast (Sgot) 25 U/L 12-42 eGFR Non- 81.6 > 60 eGFR 98.7 > 60 30 Lipid Profile 02/03/2010 [facility] Triglyceride 89 mg/dL 40-200 (Trig/Chol/HDL) [phone] Cholesterol 312 mg/dL High Less Than 200 31 High Density Lipoprotein 53 mg/dL 40-60 32 Cholesterol/HDL Ratio 5.89 AVERAGE High 1-4.97 Low Density Lipoprotein 241 mg/dL High Less Than 100 33 Urine Micro Inhouse 02/03/2010 In House Ua WBC occ Ua RBC - Ua Casts - Ua Epi - Ua Other - Ua Glucose - Ua Bilirubin - Ua Ketones - Ua Specific [place] 1.030 Ua Blood tr Ua PH 6.0 Ua Protein - Ua Urobilinogen - Ua Nitrite - Ua Leukocytes tr CBC With Electronic 02/03/2010 [facility] White Blood 7.6 CUMM 4.8- 10.8 Diff [phone] Count Red Cell Count 4.52 CUMM Low [...] Eosinophils 0.1 0-0.6 Abs Basophils 0 0-0.2 34 Laboratory test 02/03/2010 [facility] PSA Screening 2.54 NG/ML 0-4 35 finding [phone] Laboratory test 12/15/2007 [facility] Surgical verruca vulgari 36 finding [phone] Pathology 1 Because ethnic data is not [...] 5 Kidney failure <15 (or dialysis) 2 Ceramic Maker Demonstrator: [id number] 3 SEE RESULT BELOW Name: JAMES PETERSEN Bobby : [address]: Blas Hdez MD Acct: [id number] Unit: [id number] AGE: 66 Location: ED Re04/20/17 SEX: M Status: REG ER SPEC: [id number] VARSHA: 04/20/17-[address]: Blas Hdez MD REQ: [id number] RECD: 04/20/17123 STATUS: CARLOS HINDS DR: Ranjan Umana MD _ [facility] ORDERED: Flu A B Request Procedure Result Reported Site Rapid Influenza A B Request Final 04/20/17- 1246 ML Specimen received for Influenza A/B Molecular testing * ML - [facility] ([facility]) . END OF REPORT * ML=Testing performed at [facility] DEPARTMENT OF PATHOLOGY, [address] [place] [address] Trent Pham M.D. Director [facility] # [id number] 4 Because ethnic data is not always readily [...] 15-29 5 Kidney failure <15 (or dialysis) 5 Acute inflammation: >10.00 6 [facility] Severe Sepsis and Septic Shock Management Bundle Measure requires all lactic acids initially measuring >2.0 mmol/L be repeated. 7 Test Performed by: [facility] - [address] [address] [employer] Air Conditioning Mechanic: Nawaf Palencia II, M.D., Ph.D. 8 REFERENCE VALUE <=1.0 (Negative) 9 REFERENCE VALUE <20.0 (Negative) 10 Tests for antibodies to dsDNA and JONNY antigens are not performed automatically unless the AYANNA result is > or= 3.0 U. Studies performed at [facility] indicate that positive AYANNA results <3.0 U are rarely accompanied by positive second order tests. Test Performed by: [facility] [place] [address] [employer] Air Conditioning Mechanic: Nawaf Palencia II, M.D., Ph.D. 11 Would you like an EBV if Monospot is Negative?: N 12 Would you like an EBV if Monospot is Negative?: N 13 No bands detected 14 Specific serologic response to B. burgdorferi infection [...] screening test (e.g., EIA). Test Performed by: [facility] - [address] [address] [employer] Air Conditioning Mechanic: Nawaf Palencia II, M.D., Ph.D. 15 Because ethnic data is not always readily [...] 15-29 5 Kidney failure <15 (or dialysis) 16 void, clear, gold 17 CHOLESTEROL INTERPRETATION: Desirable: Less than 200 MG/DL Borderline-High Risk: 200-239 MG/DL High-Risk: 240 MG/DL and over 18 HDL INTERPRETATION: Undesirable: High Risk: Less than 40 MG/DL Desirable: Low Risk: Greater than 60 MG/DL 19 LDL INTERPRETATION: Low Risk Optimal Level: LDL Less than 100 MG/DL Near or Above Optimal: LDL 100-129 MG/DL Borderline High Risk: LDL 130-159 MG/DL High Risk: LDL 160-189 MG/DL Very High Risk: LDL Greater than 189 MG/DL 20 Anion gap measurement may be of limited value in the presence of any alkalosis, especially in a combined acid base disorder. . 21 A metabolite of Naproxen, O-desmethylnaproxen, has been shown to interfere with the Jendrassik-Aloha method for measuring total bilirubin. Samples from patients who have taken Naproxen have shown spurious elevation in total bilirubin levels. 22 Because ethnic data is not always readily [...] 15-29 5 Kidney failure <15 (or dialysis) 23 CHOLESTEROL INTERPRETATION: Desirable: Less than 200 MG/DL Borderline-High Risk: 200-239 MG/DL High-Risk: 240 MG/DL and over 24 HDL INTERPRETATION: Undesirable: High Risk: Less than 40 MG/DL Desirable: Low Risk: Greater than 60 MG/DL 25 LDL INTERPRETATION: Low Risk Optimal Level: LDL Less than 100 MG/DL Near or Above Optimal: LDL 100-129 MG/DL Borderline High Risk: LDL 130-159 MG/DL High Risk: LDL 160-189 MG/DL Very High Risk: LDL Greater than 189 MG/DL 26 ---- RUN DATE: 04/06/10 [facility] NMI LIVE PAGE 1 RUN TIME: 1143 Specimen Inquiry RUN USER: INTERFACE -- Name: JAMES PETERSEN Accbaljinder#: [id number] Status: REG REF Re04/02/10 Age/Sex: 59/M Unit#: [id number] Location: [facility] : 52 -- Specimen: [id number] SOUT Spec Date: 04/02/[address]: Jose betancur MD Spec Type: SURGICAL [...] 04/06/10 1143 -- -- DEPARTMENT OF PATHOLOGY, [address] [place] [address] [facility] Permit #[id number] Trent Pham M.D. Director Francesco Velázquez M.D. Psychology Instructor Dir dov -- 27 Anion gap measurement may be of limited value in the presence of any alkalosis, especially in a combined acid base disorder. . 28 Note change in reference range as of 11/09/07. The change was based on recommendations from the [place] [employer]. 29 A metabolite of Naproxen, O-desmethylnaproxen, has been shown to interfere with the Jendrassik-Aloha method for measuring total bilirubin. Samples from patients who have taken Naproxen have shown spurious elevation in total bilirubin levels. 30 Because ethnic data is not always readily [...] 15-29 5 Kidney failure <15 (or dialysis) 31 CHOLESTEROL INTERPRETATION: Desirable: Less than 200 MG/DL Borderline-High Risk: 200-239 MG/DL High-Risk: 240 MG/DL and over 32 HDL INTERPRETATION: Undesirable: High Risk: Less than 40 MG/DL Desirable: Low Risk: Greater than 60 MG/DL 33 LDL INTERPRETATION: Low Risk Optimal Level: LDL Less than 100 MG/DL Near or Above Optimal: LDL 100-129 MG/DL Borderline High Risk: LDL 130-159 MG/DL High Risk: LDL 160-189 MG/DL Very High Risk: LDL Greater than 189 MG/DL 34 Lymphopenia % 35 * SERUM LEVELS OF PSA MEASURED USING THE ELINA DANIE ACCESS HYBRITECH IMMUNOASSAY SHOULD NOT BE INTERPRETED ABSOLUTE EVIDENCE OF THE PRESENCE OR ABSENCE OF DISEASE. THE PSA VALUE SHOULD BE USED IN CONJUNCTION WITH OTHER PERTINENT CLINICAL DIAGNOSTIC PROCEDURES. 36 ---- RUN DATE: 12/19/07 [facility] LIVE PAGE 1 RUN TIME: 1404 Specimen Inquiry RUN USER: INTERFACE -- Name: JAMES PETERSEN Status: REG REF Re12/15/07 Age/Sex: 57/M Unit#: [id number] Location: [facility] : 52 -- Specimen: [id number] SOUT Spec Date: 12/15/[address]: Nawaf rich MD Spec Type: SURGICAL [...] 12/19/07 1404 -- -- DEPARTMENT OF PATHOLOGY, [address] [place] [address] [facility] Permit #[id number] Trent Pham M.D. Director of Laboratories -- Procedures Date Code Description Status 11/20/2015 90999716 Colonoscopy Completed 10/04/2008 0 Payment Completed 12/15/2007 76298 Shave Skin Lesion <.6CM Completed Face/Ear/Eyelid/Nose/Lip/Mucous Membr 02/13/2003 0 Payment Completed Encounters Type Date Location Provider Dx Diagnosis Office Visit 04/11/2018 Main Office Ranjan Umana, R31.0 Gross hematuria 3:00p M.D. Office Visit 01/23/2018 Main Office Ranjan Umana, R07.89 Other chest pain 11:45a M.D. 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 immunization R07.89 Other [...] Z41.8 [facility] 04/20/2017 10:30a Main Office Ranjan [...] Need For Prophylactic Vaccination & Inoculation/Influenza V06.1 Benokvijpb-Fhzytst-Uypnognh Combined (DTaP) V07.2 Prophylactic Immunotherapy Office Visit 10/03/2008 4:45p Main Office Nawaf Contreras 692.6 Dermatitis Contact [place] Yoon Due To Plants (Except Food) Office Visit 11/15/2003 11:00a Main Office brunilda 724.2 Lumbago Plan of Treatment No Information Available
--- NOTE | 2018-04-18 03:44 | ED ---
GI/ HPI - HPI Summary HPI Summary: This patient is a 67 year old M presenting to ED with a chief complaint of inability to urinate since bladder surgery yesterday at 1700. He only was able to void 2 mL after coming home. Dr. Langston took a tumor out but a catheter was not put in. The surgery site was pink and there were no gross clots. The patient rates the pain 6/10 in severity. Symptoms aggravated by nothing. Symptoms alleviated by nothing. - History of Current Complaint Chief Complaint: EDUrogenitalProblems Stated Complaint: UNABLE TO URINATE Hx Obtained From: Patient Onset/Duration: Started Days Ago, Still Present Timing: Constant, Lasting Days Severity: Moderate Current Severity: Moderate Pain Intensity: 6 Associated Signs and Symptoms: Positive: Other: - unable to void after bladder surgery yesterday Aggravating Factor(s): Nothing Alleviating Factor(s): Nothing - Allergy/Home Medications Allergies/Adverse Reactions: Allergies Allergy/AdvReac Type Severity Reaction Status Date / Time No Known Allergies Allergy Verified 04/17/18 11:53 PMH/Surg Hx/FS Hx/Imm Hx Endocrine/Hematology History: Reports: Hx Anemia - RECENTLY RELATED TO HEMATURIA Denies: Hx Diabetes Cardiovascular History: Denies: Hx Hypertension, Hx Pacemaker/ICD History: Reports: Other Problems/Disorders - HEMATURIA Denies: Hx Dialysis, Hx Renal Disease Sensory History: Reports: Hx Contacts or Glasses - READING Denies: Hx Hearing Aid Opthamlomology History: Reports: Hx Contacts or Glasses - READING Psychiatric History: Denies: Hx Panic Disorder - Cancer History Cancer Type, Location and Year: lung and brain cancer - mar 2016. [facility]. oral chemo. radiation of head - Surgical History Surgery Procedure, Year, and Place: LUNG BIOPSY. VASECTOMY Hx Anesthesia Reactions: No Infectious Disease History: No Infectious Disease History: Denies: Hx Clostridium Difficile, Hx Hepatitis, Hx Human Immunodeficiency Virus (HIV), Hx of Known/Suspected MRSA, Hx Shingles, Hx Tuberculosis, Traveled Outside the US in Last 30 Days - Family History Known Family History: Negative: Hypertension, Diabetes - Social History Alcohol Use: Occasionally Substance Use Type: Reports: None Hx Tobacco Use: No Smoking Status (MU): Never Smoked Tobacco Have You Smoked in the Last Year: No Review of Systems Negative: Fever Positive: other - unable to void after bladder surgery yesterday All Other Systems Reviewed And Are Negative: Yes Physical Exam - Summary Physical Exam Summary: Appearance: Well-appearing, Well-nourished, lying in bed comfortably Skin: Warm, dry, no obvious rash Eyes: sclera anicteric, no conjunctival pallor ENT: mucous membranes moist, pharynx appears normal Neck: Supple, nontender Respiratory: Clear to auscultation, no signs of respiratory distress Cardiovascular: Normal S1, S2. No murmurs. Normal distal pulses in tibial and radial bilaterally. Abdomen: Soft, nontender, normal active bowel sounds present GIGU: Bladder taps out just below the umbilicus. Musculoskeletal: Normal, Strength/ROM Intact Neurological: A&Ox3, awake and alert, mentation is normal, speech is fluent and appropriate Psychiatric: affect is normal, does not appear anxious or depressed Triage Information Reviewed: Yes Vital Signs On Initial Exam: Initial Vitals Temp Pulse Resp BP Pulse Ox 97.5 F 76 16 108/82 99 04/18/18 03:32 04/18/18 03:32 04/18/18 03:32 04/18/18 03:32 04/18/18 03:32 Vital Signs Reviewed: Yes Diagnostics - Vital Signs Vital Signs Temp Pulse Resp BP Pulse Ox 04/18/18 03:32 97.5 F 76 16 108/82 99 - Laboratory Lab Statement: Any lab studies that have been ordered have been reviewed, and results considered in the medical decision making process. GIGU Course/Dx - Course Assessment/Plan: This patient is a 67 year old M presenting to ED with a chief complaint of inability to urinate since bladder surgery yesterday at 1700. A catheter was placed in the ED course. The patient will be discharged with dx of urinary retention. Patient understands and agrees with this plan. - Diagnoses Differential Diagnoses - Male: Other - urinary retention Provider Diagnoses: Urinary retention Discharge - Sign-Out/Discharge Documenting (check all that apply): Patient Departure - discharge Patient Received Moderate/Deep Sedation with Procedure: No - Discharge Plan Condition: Good Disposition: HOME Patient Education Materials: Urinary Retention in Men (ED) Referrals: Yfn Langston MD [Medical Doctor] - Additional Instructions: There was only about 200 cc of urine in the bladder, and only a few small clots. We will leave the catheter in overnight, but contact Dr. Langston in the morning as he will probably want to have it removed fairly soon if the urine remains clear and non bloody. Sometimes it takes a day or two for the fluids you got during surgery to "mobilize" and be excreted, so make sure to get plenty of fluids in the meantime. - Billing Disposition and Condition Condition: GOOD Disposition: Home - Attestation Statements Document Initiated by Shayna: Yes Documenting Scribe: Jeffrey Paz Provider For Whom Shayna is Documenting (Include Credential): Blas Rabago MD Scribe Attestation: I, Jeffrey Paz, scribed for Blas Rabago MD on 04/20/18 at 0215. Scribe Documentation Reviewed: Yes Provider Attestation: The documentation as recorded by the Jeffrey lugo accurately reflects the service I personally performed and the decisions made by me, Blas Rabago MD Status of Scribe Document: Viewed
[2018-04-18 05:08] VITALS: BP 96/60
== END 2018-04-18 05:08 | disposition home or self-care (01) ==
LOC: ED 03:31
DX: R33.9 Retention of urine, unspecified (principal); D64.9 Anemia, unspecified; Z85.841 Personal history of malignant neoplasm of brain; Z85.118 Personal history of other malignant neoplasm of bronchus and lung
CPT/HCPCS: 99281

== ENCOUNTER 2018-09-12 15:01 | Observation (INO) | payer MEDICARE, BC ==
[2018-09-12] MEDS ORDERED: Acetaminophen TAB* 325 MG PO PRN (18:03)
[2018-09-13] MEDS ORDERED: Dexamethasone TAB* 1 MG PO SCH (09:00)
--- NOTE | 2018-09-13 12:40 | DS ---
CC: Dr. Umana * DISCHARGE SUMMARY: DATE OF ADMISSION: 09/12/18 DATE OF DISCHARGE: 09/13/18 PRIMARY CARE PROVIDER: Dr. Umana PRIMARY ONCOLOGIST/ATTENDING PHYSICIAN: Dr. Adrien Villalta * (DICTATED BY SELENE SAXENA) DISCHARGING PROVIDER: SELENE Saxena. PRIMARY DISCHARGE DIAGNOSES: 1. Pneumothorax, status post thoracentesis. 2. Metastatic non-small cell lung cancer. DISCHARGE MEDICATIONS: 1. Acetaminophen 1000 mg p.o. q.6 hours as needed for pain or fever. 2. Dexamethasone 2 mg p.o. daily. 3. Naproxen 220 mg p.o. daily. HOSPITAL IMAGIN. Chest x-ray, 09/12/18, demonstrates a small right pneumothorax estimated about 15% to 20% of total lung volume, negative for mediastinal shift. 2. Repeat chest x-ray, 09/12/18, shows right-sided hydropneumothorax with mild progression compared to prior. 3. Chest x-ray, 09/13/18, shows a stable right-sided hydropneumothorax, per personal review appears improved with slight progression of pleural effusion. HOSPITAL COURSE: This is a 68-year-old gentleman with metastatic non-small cell lung cancer, who underwent thoracentesis on 09/12/18. Postprocedure film demonstrated small pneumothorax. The patient was asymptomatic at that time. Repeat chest x-ray demonstrated slight progression and the patient was subsequently admitted to the hospital for overnight observation. Repeat chest x -ray morning of discharge showed slight improvement to stability. The patient remained asymptomatic and oxygen saturations in the high 90s on room air. DISPOSITION AND FOLLOWUP PLAN: The patient is being discharged to home where he lives with his in stable condition. Recommend repeat chest x-ray on an outpatient basis tomorrow. The patient will be seen by Dr. Villalta next week, 05/09, for subsequent followup. SELENE SAXENA [id number]/[facility] #: [id number] MTDD
[2018-09-13 13:12] VITALS: BP 91/56
== END 2018-09-13 12:30 | disposition home or self-care (01) ==
LOC: MED 15:48
PROVIDERS: ADMIT Internal Medicine Hematology & Oncology; ATTEND Internal Medicine Hematology & Oncology
DX: J93.9 Pneumothorax, unspecified (principal); Z87.09 Personal history of other diseases of the respiratory system; C34.90 Malignant neoplasm of unspecified part of unspecified bronchus or lung; J90 Pleural effusion, not elsewhere classified
CPT/HCPCS: 71046; 99217; 99218; A9270-GY; G0378

== ENCOUNTER 2019-01-03 15:11 | Observation (INO) | payer MEDICARE, BC ==
--- OUTSIDE RECORDS SUMMARY | 2019-01-03 15:23 | XMS REPORT | Continuity of Care Document ---
:1950 External Reference #:[id number] Author Name Ranjan Umana M.D. 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 Social History Type Date Description Comments Sex Unknown Tobacco Use Start: Unknown Denies Cigarette Use ETOH Use Drinks Alcoholic Beverages Occasionally Recreational Drug Use Denies Drug Use Tobacco Use Start: Unknown Non Smoker Smoking Status Reviewed: 04/13/18 Non Smoker Sun Exposure minimum amount of sun exposure Sun Exposure Uses sunscreen Seat Belt/Car Seat always uses seat belt Guns in Home Yes, Locked Up Smoke Alarms Yes smoke alarm Allergies, Adverse Reactions, Alerts Description No Known Drug Allergies Medications Active Medications SIG Qnty Indications Ordering Date Provider PT: Evaluate And Lyndsay, 06/19/2018 Treat France Woodruff Lorazepam 1 by mouth every 6 5tabs Silcoff, 06/09/2018 0.5mg hours as needed for France Woodruff Tablets anxiety or agitation Morphine Sulfate 1/4 milliliter (5mg) 15ml Silcoff, 06/09/2018 (Concentrate) under the tongue France Woodruff every 3 hours as 20mg/ml Solution needed for pain or sob [facility] patient Lyndsay, 06/08/2018 with Lung Cancer France Woodruff (04/06/16), metastatic to brain., treated with chemotherapy and whole brain radiation. Tylenol give 1-2 tablets by Unknown 01/22/2018 325mg mouth [id number] as Tablets needed for pain maximum of 6 pills a day otc Alecensa 4 tablets by mouth 240caps Unknown 01/05/2018 150mg twice daily Capsules Aleve 2 by mouth up to R07.89 Lyndsay, 11/07/2017 220mg Tablets every 8 hours for France Woodruff chest wall pain Immunizations CPT Code Status Date Vaccine Lot # [id number] Given 11/13/2018 Pneumococcal Immunization [id number] Given 12/21/2017 Influenza Virus Vaccine, Quadrivalent, Split, [id number] Preservative Free [id number] Given 11/07/2017 Prevnar 13 [id number] 63608 Given 02/03/2010 Adacel or Boostrix, TDaP [id number] 32045 Given 02/03/2010 Flu, Split Virus 3Yrs [id number] 43580 Given 01/16/2005 Flu, Split Virus 3Yrs 77396 Given 01/16/2005 Flu, Split Virus 3Yrs [id number] Refused 02/17/2016 Influenza Virus Vaccine, Quadrivalent, Split, Im Use Vital Signs Date Vital Result Comment 07/04/2018 6:59pm BP Systolic 85 mmHg left arm BP Diastolic 45 mmHg left arm 04/13/2018 4:42pm BP Systolic 96 mmHg BP Diastolic 60 mmHg Results Test Acquired Date Facility Test Result H/L Range Note Lactate 09/12/2018 [facility] Lactate 98 U/L 1 Dehydrogenase,BF [phone] Dehydrogenase, BF Fluid Source PLEURAL 2 Body Fluid Total Protein 09/12/2018 [facility] Total Protein, BF 3.9 g/ dL 3 [phone] Fluid Source PLEURAL 4 CBC Auto Diff 09/12/2018 [facility] White Blood 11.0 10^3/uL High 3.5 -10.8 [phone] Count Red Blood Count 4.03 10^6/uL Low 4.18-5.48 Hemoglobin 11.8 g/dL Low 14.0-18.0 Hematocrit 35 % Low 42-52 Mean Corpuscular Volume 87 fL Normal 80-94 Mean Corpuscular Hemoglobin 29 pg Normal 27-31 Mean Corpuscular HGB Conc 34 g/dL Normal 31-36 Red Cell Distribution Width 18 % High 10-15 Platelet Count 296 10^3/uL Normal 150-450 Mean Platelet Volume 8.8 fL Normal 7.4-10.4 Abs Neutrophils 6.4 10^3/uL Normal 1.5-7.7 Abs Lymphocytes 3.2 10^3/uL Normal 1.0-4.8 Abs Monocytes 1.1 10^3/uL High 0-0.8 Abs Eosinophils 0.2 10^3/uL Normal 0-0.6 Abs Basophils 0.1 10^3/uL Normal 0-0.2 Abs Nucleated RBC 0.0 10^3/uL Granulocyte % 58.2 % Lymphocyte % 28.9 % Monocyte % 10.2 % Eosinophil % 1.5 % Basophil % 1.2 % Nucleated Red Blood Cells % 0.1 Comp Metabolic Panel 09/12/2018 [facility] Sodium 137 mmol/L Normal 135-145 [phone] Potassium 4.0 mmol/L Normal 3.5-5.0 Chloride 103 mmol/L Normal 101-111 Co2 Carbon Dioxide 28 mmol/L Normal 22-32 Anion Gap 6 mmol/L Normal 2-11 Glucose 88 mg/dL Normal 70-100 Blood Urea Nitrogen 24 mg/dL Normal 6-24 Creatinine 0.82 mg/dL Normal 0.67-1.17 BUN/Creatinine Ratio 29.3 High 8-20 Calcium 9.5 mg/dL Normal 8.6-10.3 Total Protein 6.8 g/dL Normal 6.4-8.9 Albumin 4.0 g/dL Normal 3.2-5.2 Globulin 2.8 g/dL Normal 2-4 Albumin/Globulin Ratio 1.4 Normal 1-3 Total Bilirubin 0.30 mg/dL Normal 0.2-1.0 Alkaline Phosphatase 58 U/L Normal 34-104 Alt 8 U/L Normal 7-52 Ast 10 U/L Low 13-39 Egfr Non- 93.7 >60 Egfr 113.4 >60 5 1 REFERENCE VALUE Not Applicable 2 Test Performed by: [facility] - [address] [address] 3 REFERENCE VALUE Not Applicable ADDITIONAL INFORMATION This test has been modified from the equipment man's instructions. Its performance characteristics were determined by [facility] in a manner consistent with CLIA requirements. This test has not been cleared or approved by the U.S. Food and Drug Administration. 4 Test Performed by: [facility] - [address] [address] 5 Because ethnic data is not always [...] 15-29 5 Kidney failure <15 (or dialysis) Procedures Date Code Description Status 11/20/2015 56946710 Colonoscopy Completed Medical Devices Description No Information Available Encounters Type Date Location Provider Dx Diagnosis Office Visit 07/04/2018 Main Office Mahesh Goetz, C34.92 Malignant neoplasm 4:30p D.O. of unsp part of left bronchus or lung R53.1 Weakness Z91.81 History of falling Assessments Date Code Description Provider 11/13/2018 Z23 Encounter for immunization Nurse's Schedule 11/13/2018 Z41.8 Encounter for other procedures for purposes Nurse's Schedule other than remedying health state 08/03/2018 C34.92 Malignant neoplasm of unspecified part of Ranjan Umana M.D. left bronchus or lung 08/03/2018 C79.31 Secondary malignant neoplasm of brain Ranjan Umana M.D. 08/03/2018 G89.3 Neoplasm related pain (acute) (chronic) Ranjan Umana M.D. 07/04/2018 C34.92 Malignant neoplasm of unspecified part of Mahesh Goetz D.O. left bronchus or l 07/04/2018 R53.1 Weakness Mahesh Goetz D.O. 07/04/2018 Z91.81 History of falling Mahesh Goetz D.O. Plan of Treatment No Information Available Functional Status Description No Information Available Mental Status Description No Information Available Referrals Description No Information Available
--- NOTE | 2019-01-03 15:28 | ED ---
Altered Mental Status - HPI Summary HPI Summary: 68 year old M w hx metastatic lung cancer, hypothyroidism [facility] accompanied by and son complains of altered mental status since 36 hours ago. Son states that patient is unable to respond to answers correctly and quickly. Son states that patient is able to stand on own with assistance of walker, able to take steps with walker. Son reports decreased appetite, fatigue. Patient denies pain, weakness. The patient denies complaints but does not know why he is here. Per son, patient diagnosed with non small cell lung cancer on 03/27/16 with metathesis to brain, lung, liver, pelvis for which he sees Dr. Villalta. Son states patient was taken off chemotherapy treatment on because he was getting fatigue with his medications. Contacted Dr. Villalta this morning and was referred to the ED. states patient takes 2 mg dexamethasone daily. Son reports recent weight gain over last 2 months, started 12/27/18 on levothyroxine. - History Of Current Complaint Stated Complaint: WEAKNESS Time Seen by Provider: 01/03/19 15:19 Hx Obtained From: Patient, Family/[employer] - , son Onset/Duration: Still Present Timing: Constant, Lasting Hours - 36 Aggravating Factor(s): Nothing Alleviating Factor(s): Nothing - Allergies/Home Medications Allergies/Adverse Reactions: Allergies Allergy/AdvReac Type Severity Reaction Status Date / Time No Known Allergies Allergy Verified 11/07/18 12:59 Home Medications: Home Medications Alectinib HCl [Alecensa] 600 mg PO BID 01/03/19 [History Confirmed 01/03/19] Dexamethasone TAB* [Decadron TAB*] 2 mg PO DAILY 01/03/19 [History Confirmed ] LORazepam TAB(*) [Ativan 0.5 MG TAB (*)] 0.5 mg PO Q6HR PRN 01/03/19 [History Confirmed 01/03/19] Morphine Sulfate 5 mg PO Q3HR PRN 01/03/19 [History Confirmed 01/03/19] PMH/Surg Hx/FS Hx/Imm Hx Endocrine/Hematology History: Reports: Hx Anemia - RECENTLY RELATED TO HEMATURIA Denies: Hx Diabetes Cardiovascular History: Denies: Hx Hypertension, Hx Pacemaker/ICD Respiratory History: Denies: Hx Asthma History: Reports: Other Problems/Disorders - HEMATURIA Denies: Hx Dialysis, Hx Renal Disease Sensory History: Reports: Hx Contacts or Glasses - READING Denies: Hx Hearing Aid Opthamlomology History: Reports: Hx Contacts or Glasses - READING Psychiatric History: Denies: Hx Panic Disorder - Cancer History Cancer Type, Location and Year: lung and brain cancer - mar 2016. [facility]. oral chemo. 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 VASECTOMY Hx Anesthesia Reactions: No Infectious Disease History: No Infectious Disease History: Denies: Hx Clostridium Difficile, Hx Hepatitis, Hx Human Immunodeficiency Virus (HIV), Hx of Known/Suspected MRSA, Hx Shingles, Hx Tuberculosis, Traveled Outside the US in Last 30 Days - Family History Known Family History: Negative: Hypertension, Diabetes - Social History Alcohol Use: Rare Substance Use Type: Reports: None Hx Tobacco Use: No Smoking Status (MU): Never Smoked Tobacco Have You Smoked in the Last Year: No Review of Systems Positive: Fatigue Positive: Other - decreased appetite Neurological: Other - AMS Negative: Weakness All Other Systems Reviewed And Are Negative: Yes Physical Exam - Summary Physical Exam Summary: Constitutional: Chronically ill-appearing, Alert. (-) Distressed Skin: Warm, Dry HENT: Normocephalic; Atraumatic Eyes: Conjunctiva normal Neck: Musculoskeletal ROM normal neck. (-) JVD, (-) Nuchal rigidity Cardio: Rhythm regular, rate normal, Heart sounds normal; Intact distal pulses; Radial pulses are 2+ and symmetric. (-) Murmur Pulmonary/Chest wall: Effort normal. (-) Respiratory distress, (-) Wheezes, (-) Rales Abd: Soft. (-) Tenderness, (-) Distension, (-) Guarding, (-) Rebound Musculoskeletal: (-) Edema Lymph: (-) Cervical adenopathy Neuro: Alert and oriented x2 (person and place, not time), he has diffuse weakness without focal neurologic deficit, follows commands, gait deferred Psych: Mood and affect Normal GCS: 14 Triage Information Reviewed: Yes Vital Signs On Initial Exam: Initial Vitals Temp Pulse Resp BP Pulse Ox 98.5 F 76 16 105/68 94 01/03/19 15:17 01/03/19 15:17 01/03/19 15:17 01/03/19 15:17 01/03/19 15:17 Vital Signs Reviewed: Yes Procedures - Sedation Patient Received Moderate/Deep Sedation with Procedure: No Diagnostics - Vital Signs Vital Signs Temp Pulse Resp BP Pulse Ox 01/03/19 15:17 98.5 F 76 16 105/68 94 - Laboratory Result Diagrams: 01/03/19 15:44 01/03/19 15:44 Lab Statement: Any lab studies that have been ordered have been reviewed, and results considered in the medical decision making process. - Radiology CXR Radiology Interpretation Completed By: Radiologist Summary of Radiographic Findings: NO ACTIVE CARDIOPULMONARY DISEASE IS NOTED. ED physician has reviewed this report. - CT Brain CT Interpretation Completed By: Radiologist Summary of CT Findings: Periventricular lucency consistent with chronic ischemic White matter change. High density areas in the left frontal and right frontal lobe may be sequela from prior treated lesions. ED physician has reviewed this report. - EKG 1531 Cardiac Rate: NL - 77 BPM EKG Rhythm: Sinus Rhythm Summary of EKG Findings: T wave inversions in leads V2 and V3 which are new when compared to 04/20/2017 Re-Evaluation - Re-Evaluation First Eval Re-Evaluation Time: 17:00 Comment: labwork unremarkable, pending UA. head CT shows no acute process. will call Dr. Thompson Second Eval Re-Evaluation Time: 17:09 Comment: family agreeable to admission for AMS and fatigue, still pending UA Altered Mental Statu Course/Dx - Course Course Of Treatment: 68 y/o male w hx metastatic lung cancer w mets to brain, hypothyroidism p/w AMS. Given that this patient has normal O2, BG, hypoxia and hypoglycemia/DKA less likely. DDx still includes: electrolyte abnl, thyroid issues, infection/sepsis, uremia, trauma, encephalopathy/encephalitis, psych, stroke, SAH, postictal from seizure. Will check labs, head ct, urine, ekg, cxr. Reassess. Will d/w oncology - Diagnoses Provider Diagnoses: Altered mental status, Weakness - Provider Notifications Discussed Care Of Patient With: Gerard Thompson Time Discussed With Above Provider: 17:04 Instructed by Provider To: Other - Dr. Thompson, oncology, agrees to admit patient Discharge ED - Sign-Out/Discharge Documenting (check all that apply): Patient Departure - Admit - Discharge Plan Condition: Fair Disposition: ADMITTED TO [facility] Referrals: Ranjan Umana MD [Primary Care Provider] - - Billing Disposition and Condition Condition: FAIR Disposition: Admitted to [facility] - Attestation Statements Document Initiated by Shayna: Yes Documenting Scribe: Shabnam Coe Provider For Whom Shayna is Documenting (Include Credential): Oziel Moon MD Scribe Attestation: I, Shabnam Coe, scribed for Oziel Moon MD on 01/03/19 at 1819. Scribe Documentation Reviewed: Yes Provider Attestation: The documentation as recorded by the Shabnam lugo accurately reflects the service I personally performed and the decisions made by me, Oziel Moon MD Status of Scribe Document: Viewed
[2019-01-03 16:10] LABS: ABS Eosinophils 0.1 10^3/ul (0-0.6); ABS Lymphocytes 0.7 10^3/ul (1.0-4.8); ABS Monocytes 0.7 10^3/ul (0-0.8); ABS Neutrophils 6.1 10^3/ul (1.5-7.7); Eosinophil % 1.5 %; Hematocrit 39 % (42-52); Lymphocyte % 9.5 %; Mean Corpuscular HGB Conc 34 g/dL (31-36); Mean Corpuscular Hemoglobin 32 pg (27-31); Mean Corpuscular Volume 96 fL (80-94); Mean Platelet Volume 9.1 fL (7.4-10.4); Nucleated Red Blood Cells % 0.1; Platelet Count 172 10^3/uL (150-450); Red Blood Count 4.03 10^6 /uL (4.18-5.48); Red Cell Distribution Width 16 % (10-15); White Blood Count 7.6 10^3/uL (3.5-10.8)
[2019-01-03 16:22] LABS: Albumin 3.7 g/dL (3.2-5.2); Albumin/Globulin Ratio 1.3 (1-3); BUN/Creatinine Ratio 29.2 (8-20); Calcium 9.3 mg/dL (8.6-10.3); EGFR African American 148.3 (>60); EGFR Non-African American 122.5 (>60); Globulin 2.9 g/dL (2-4); Magnesium 2.3 mg/dL (1.9-2.7); Total Bilirubin 0.5 mg/dL (0.2-1.0); Total Protein 6.6 g/dL (6.4-8.9)
[2019-01-03 16:27] LABS: TSH (Thyroid Stimulating Horm) 3.2 mcIU/mL (0.34-5.60)
[2019-01-03 16:31] LABS: Free T4 0.6 ng/dL (0.61-1.12)
[2019-01-03] MEDS ORDERED: NS 0.9% 1000 ML** 1,000 ML IV ONE (17:07)
[2019-01-03 17:41] LABS: Potassium 4.4 mmol/L (3.5-5.0)
[2019-01-03] MEDS ORDERED: Hydrocortisone INJ* 100 MG VIAL IV ONE (18:15)
[2019-01-03] MEDS ORDERED: LORazepam TAB(*) 0.5 MG PO PRN (18:18)
[2019-01-03] MEDS ORDERED: Morphine ORAL.SOLN 10 mg* 2 MG/ML UDC 5 ml PO PRN (18:18)
[2019-01-03 18:20] LABS: Urine Appearance Clear; Urine Bilirubin Negative (Negative); Urine Blood Negative (Negative); Urine Color Yellow; Urine Glucose Negative (Negative); Urine Ketones Trace (Negative); Urine Nitrite Negative (Negative); Urine Protein Negative (Negative); Urine Specific Gravity 1.014 (1.010-1.030); Urine Urobilinogen Negative (Negative)
[2019-01-03] MEDS ORDERED: NS 0.9% 1000 ML** 1,000 ML IV SCH (18:30)
[2019-01-03] MEDS ORDERED: Gadoteridol* (CONTRAST) 279.3 MG/ML 10 ML IV ONE (19:56)
[2019-01-03] MEDS ORDERED: Enoxaparin(*) 40 MG/0.4 ML SYR SUBCUT SCH (20:00)
--- NOTE | 2019-01-03 20:09 | HP ---
CC: Dr. Umana; Dr. Villalta * ADMISSION HISTORY AND PHYSICAL: DATE OF ADMISSION: 01/03/19 PRIMARY CARE PROVIDER: Dr. Umana. PRIMARY ONCOLOGIST: Dr. Villalta. ATTENDING PHYSICIAN: Dr. Thompson.* (DICTATED BY SELENE SAXENA) ADMITTING PROVIDER: SELENE Saxena. CHIEF COMPLAINT: Altered mental status. HISTORY OF PRESENT ILLNESS: This is a 68-year-old gentleman with known metastatic ALK-positive skx-iehtn-mski lung cancer, who recently established care with Dr. Villalta, who presented to the emergency department with a rather sudden decline in physical status over the last 36 hours. The patient's and son report that his baseline is that he is able to assist in transfers and generally able to walk short distances with the use of a walker, but over the last 36 hours he has been unable to stand and his weakness progressed to the point that he was unable to feed himself meals today or have the strength to suck from a straw. His and son believe that he has been confused, but in the emergency department he has been answering questions appropriately and does not exhibit the same level of confusion as what they had observed at home. The patient denies any focal symptoms including headache, blurred vision, chest pain , shortness of breath, abdominal pain, nausea, vomiting, diarrhea, or constipation. No urinary symptoms. No fever or chills. He does have occasional hot flashes, but this is not unusual for him. The patient was last seen by Dr. Villalta on 12/26/18 and complained of some physical decline, but not to the extent as what is being described by his family at this time. He held his oral chemotherapy (lorlatinib) and was noted to have an elevated TSH to 12.68 and was subsequently started on 25 mcg of levothyroxine. He has been on dexamethasone for quite some time and was continued on his usual dose of 2 mg daily. His reports that he has not missed any doses of the dexamethasone and has started the levothyroxine as instructed. No other medication changes noted. PAST MEDICAL HISTORY: Metastatic tyc-ojrki-nlic lung cancer including PHYSICAL THERAPY RESIDENT metastases, status post whole brain radiation and recent oral TKI lorlatinib therapy, on hold for approximately 1 week. HOME MEDICATIONS: 1. Dexamethasone 2 mg p.o. daily. 2. Acetaminophen as needed. 3. Ibuprofen as needed. 4. Lorazepam 0.5 mg p.o. q.6 hours as needed. FAMILY HISTORY: Father had unspecified type of cancer and at the age of 97. Sister is alive and has a history of ovarian cancer. No other major illnesses within the family. SOCIAL HISTORY: The patient is and lives at home with his . 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 No history of smoking and only occasional alcohol consumption. REVIEW OF SYSTEMS: Full review of systems completed and as noted in HPI; otherwise, negative. PHYSICAL EXAMINATION GENERAL: This is a chronically ill-appearing 68-year-old male, in no acute distress, accompanied by his and son. INITIAL VITAL SIGNS: Temperature 98.5 degrees Fahrenheit, pulse 76 beats per minute, respiratory rate 16, oxygen saturation 94% on room air, blood pressure 105/68 mmHg. HEENT: Head is normocephalic, atraumatic. Mucous membranes are pink and moist. RESPIRATORY: Lungs are clear to auscultation without wheezes, crackles, or rhonchi. CARDIOVASCULAR: Heart has a regular rate and rhythm without murmurs, rubs, or gallops. ABDOMEN: Soft and nontender to palpation. EXTREMITIES: There is no edema. NEUROLOGIC: The patient is appropriate in conversation, able to answer all questions. He is alert and oriented. He has global weakness estimated at approximately 3/4 in all muscle groups and no cranial nerve deficits appreciated on exam. The patient was not asked to stand during this evaluation. DIAGNOSTIC STUDIES/LAB DATA: CBC shows white blood cell count of 7600, hemoglobin 13, platelet count 172,000. Comprehensive metabolic panel shows sodium of 135, potassium of 4.4, BUN of 19, creatinine 0.65. Transaminases and total bilirubin are within normal limits. Troponin is negative. TSH is 3.2 with a free T4 of 0.6 and random cortisol is pending. Urinalysis is negative. Imaging studies: 1. CT of the brain shows periventricular lucency consistent with chronic ischemia, white matter changes, and high-density areas in the left frontal and right frontal lobes which may be sequelae from prior treated lesions, but no obvious vasogenic edema, large masses, or other acute process. 2. Chest x-ray shows no acute disease. ASSESSMENT AND PLAN: This is a 68-year-old gentleman with metastatic non-small - cell lung cancer with known prior central nervous system disease who presented to the emergency department with a rather significant physical decline over the last 36 hours. There are no focal deficits on exam or obvious pathology seen on initial labs. Differential diagnosis includes progressive central nervous system disease versus adrenal insufficiency secondary to an unclear metabolic stressor. We will plan to admit the patient to observation status overnight and obtain an urgent MRI of the brain and stress dose pulse steroids. 1. Altered mental status/generalized weakness - plan to obtain MRI with and without contrast for comparison to October study and assess for central nervous system progression of disease. Plan to stress dose steroids with 1 dose of hydrocortisone at 100 mg, followed by increasing oral dexamethasone to 4 mg daily. 2. Metastatic icx-mmqyf-eiau lung cancer - therapy is currently on hold and future plans will depend on imaging. 3. Code status: The patient is DNR. 4. DVT prophylaxis: 40 units subcu Lovenox daily. 5. Disposition: The patient is being admitted to observation status with anticipated length of stay of 1 midnight. SELENE SAXENA [id number]/[facility] #: [id number] MINNIE
[2019-01-04] MEDS ORDERED: Dexamethasone TAB* 4 MG PO SCH (09:00)
[2019-01-04] MEDS ORDERED: Influenza VAC *QUAD* 2019-20* 0.5 ML SYRINGE IM ONE (09:00)
[2019-01-04 10:14] LABS: ABS Monocytes 0.5 10^3/ul (0-0.8); ABS Neutrophils 7.6 10^3/ul (1.5-7.7); Eosinophil % 0.4 %; Hematocrit 37 % (42-52); Hemoglobin 12.9 g/dL (14.0-18.0); Lymphocyte % 11.2 %; Mean Corpuscular HGB Conc 34 g/dL (31-36); Mean Corpuscular Hemoglobin 33 pg (27-31); Mean Corpuscular Volume 94 fL (80-94); Mean Platelet Volume 9.1 fL (7.4-10.4); Platelet Count 206 10^3/uL (150-450); Red Blood Count 3.96 10^6 /uL (4.18-5.48); Red Cell Distribution Width 16 % (10-15); White Blood Count 9.3 10^3/uL (3.5-10.8)
[2019-01-04 10:33] LABS: Albumin 3.9 g/dL (3.2-5.2); Albumin/Globulin Ratio 1.1 (1-3); BUN/Creatinine Ratio 21.4 (8-20); Calcium 9.4 mg/dL (8.6-10.3); EGFR African American 136.1 (>60); EGFR Non-African American 112.5 (>60); Globulin 3.4 g/dL (2-4); Potassium 3.5 mmol/L (3.5-5.0); Total Bilirubin 0.4 mg/dL (0.2-1.0); Total Protein 7.3 g/dL (6.4-8.9)
[2019-01-04 11:39] VITALS: BP 107/59
--- NOTE | 2019-01-04 11:57 | DS ---
CC: Dr. Umana; Dr. Villalta * DISCHARGE SUMMARY: DATE OF ADMISSION: 01/03/19 DATE OF DISCHARGE: 01/04/19 PRIMARY CARE PROVIDER: Dr. Umana. PRIMARY ONCOLOGIST: Dr. Villalta. ATTENDING PHYSICIAN: Dr. Thompson.* (DICTATED BY SELENE SAXENA) DISCHARGING PROVIDER: SELENE Saxena PRIMARY DISCHARGE DIAGNOSIS: Generalized weakness, likely secondary to acute adrenal insufficiency. SECONDARY DISCHARGE DIAGNOSIS: Metastatic non-small cell lung cancer without evidence of progressive metastatic disease during this hospitalization. DISCHARGE MEDICATIONS: 1. Acetaminophen 500 mg p.o. as needed for pain or fever. 2. Lorazepam 0.5 mg p.o. q.6 hours as needed for anxiety. 3. Morphine sulfate 5 mg p.o. q.3 hours as needed for pain. 4. Naproxen 440 mg p.o. q.8 hours as needed for pain. 5. Dexamethasone 4 mg daily x3 days, then resume usual dose of 2 mg [address]. [address] IMAGIN. CT brain on 01/03/19 shows periventricular lucency consistent with chronic ischemia, white matter change, and high density areas in the left frontal and right frontal lobes, may be sequela from previously treated lesions. 2. Chest x-ray on 01/03/19 shows no acute process. 3. MRI brain shows small foci of enhancement involving bilateral frontal lobes , which is stable from prior MRI in October. There is confluent white matter signal along bilateral velazquez radii and centrum semiovale stable and likely secondary to post treatment sequela. There are no new acute abnormalities. HOSPITAL COURSE: This is a 68-year-old gentleman with metastatic non-small cell lung cancer with known prior [employer] metastases, treated by whole brain radiation in 2017 under the care of Dr. Villalta, recently treated with the ALK- targeted oral chemotherapy lorlatinib, who was seen by Dr. Villalta last week with some complaints of generalized fatigue and physical decline, but at that time still able to generally transfer independently and ambulate with the use of a walker. His oral chemotherapy was held at that time and he continued his usual dose of dexamethasone of 2 mg daily. The patient's noted an acute decline in him physically over the 36 hours prior to his hospitalization, where he was unable to feed himself for find the strength to drink from a straw. He had no fever or other systemic symptoms. He was brought to the emergency department for further evaluation. Initial vitals and labs were unremarkable. CT of the brain showed no acute abnormalities. The patient was subsequently admitted for a period of observation with concern for either acute adrenal insufficiency and/ or progressive [employer] metastases. MRI of the brain with and without contrast was completed, which showed no new enhancing lesions. Random cortisol level was low at 0.7 but difficult to interpret as this was at 4 o'clock in the afternoon. The patient received 1 dose of 100 mg of hydrocortisone and increased his usual daily dose of dexamethasone to 4 mg daily. The patient had a dramatic improvement in his performance status overnight. The patient was able to feed himself with smiling and conversing and had full strength. The patient felt that he was back to his baseline. No signs of infectious symptoms as the patient remained afebrile with normal vital signs and normal white blood cell count throughout his hospital stay. DISPOSITION AND FOLLOWUP PLAN: The patient is being discharged to home in stable condition where he lives with his and son. He will continue with 4 mg daily of dexamethasone for 3 additional days and then reduce his dose back down to his usual 2 mg daily. Plan for followup with Oncology next week. SELENE SAXENA [id number]/[facility] #: [id number] MTDD
== END 2019-01-04 13:45 | disposition home or self-care (01) ==
LOC: ED 15:11 → MED 18:16
PROVIDERS: ADMIT Internal Medicine Hematology & Oncology; ATTEND Internal Medicine Hematology & Oncology
DX: R53.1 Weakness (principal); C34.90 Malignant neoplasm of unspecified part of unspecified bronchus or lung; Z79.899 Other long term (current) drug therapy; F41.9 Anxiety disorder, unspecified; R41.82 Altered mental status, unspecified; R31.9 Hematuria, unspecified; R94.31 Abnormal electrocardiogram [ECG] [EKG]
CPT/HCPCS: 36415; 70450; 70553; 71045; 80053; 81003; 82533; 83735; 84439; 84443; 84484; 85025; 90471; 90686; 93005; 96372; 96374; 99217; 99219; 99284; A9579; G0008; G0378; G8978-GP-CK; G8979-GP-CJ; G8980-GP-CK; J1650; J1720; J8540